=== PATIENT | female | born 1965 | race Caucasian/White ===

== ENCOUNTER 2016-12-08 20:48 | Inpatient (IN) | payer OTHER ==
[~2016-12-08] VITALS: Ht 162.6 cm; Wt 69.4 kg
[2016-12-08 20:45] VITALS: BP 142/100; PULSE 97; RESP 21; TEMP 97; O2SAT 95
[2016-12-08] MEDS ORDERED: SODIUM CHLORIDE 0.9% FLUSH 10 ML FLUSH IV FLUSH PRN (21:15)
[2016-12-08] MEDS ORDERED: GLUCAGON 1 MG/ML VIAL OTHER PRN (21:15)
[2016-12-08] MEDS ORDERED: NALOXONE HCL 0.4 MG/ML AMP IV PUSH PRN (21:15)
[2016-12-08] MEDS ORDERED: ACETAMINOPHEN 325 MG TAB PO PRN (21:15)
[2016-12-08] MEDS ORDERED: DEXTROSE 50% IN WATER 50 ML VIAL(D50) IV PUSH PRN (21:15)
[2016-12-08] MEDS ORDERED: ONDANSETRON HCL 4 MG/2 ML VIAL IVP PRN (21:15)
[2016-12-08] MEDS: ENOXAPARIN SODIUM 40 MG/0.4 ML SYRINGE SQ SCH (22:18)
[2016-12-08] MEDS ORDERED: METF1000 PO (22:21)
[2016-12-09] VITALS (8 sets, daily range): BP systolic 136–157; BP diastolic 82–106; PULSE 75–98; RESP 17–20; TEMP 97.5–98.2; O2SAT 94–98
[2016-12-09 07:05] LABS: AUTOMATED NEUTROPHIL # 4.3 TH/MM3 (1.8-7.7); BASOPHIL # 0.1 TH/MM3 (0-0.2); BASOPHIL % 0.8 % (0.0-2.0); EOSINOPHIL # 0.2 TH/MM3 (0-0.4); EOSINOPHIL % 3.1 % (0.0-4.0); HEMATOCRIT 37.9 % (35.0-46.0); HEMO FLAGS DIFF FINAL; LYMPH % 29.8 % (9.0-44.0); LYMPHOCYTE # 2.2 TH/MM3 (1.0-4.8); MEAN CELL VOLUME 89.8 FL (80.0-100.0); MEAN CORPUSCULAR HEMOGLOBIN 31.3 PG (27.0-34.0); MEAN CORPUSCULAR HGB CONC 34.9 % (32.0-36.0); NEUT % 59.3 % (16.0-70.0); PLATELET COUNT 181 TH/MM3 (150-450); RED BLOOD COUNT 4.22 MIL/MM3 (4.00-5.30); RED CELL DISTRIBUTION WIDTH 12.8 % (11.6-17.2); WHITE BLOOD COUNT 7.3 TH/MM3 (4.0-11.0)
[2016-12-09 07:10] LABS: POTASSIUM 3.4 MEQ/L (3.5-5.1)
[2016-12-09 07:15] LABS: BICARBONATE 30.6 MEQ/L (21.0-32.0)
--- NOTE | 2016-12-09 07:29 | EKG ---
Date Performed: 12/09/2016 Time Performed: 03:05:59 PTAGE: 51 years EKG: Sinus rhythm WITH OCCASIONAL VENTRICULAR PREMATURE COMPLEXES POSSIBLE LEFT ATRIAL ENLARGEMENT LOW QRS VOLTAGE IN PRECORDIAL LEADS MODERATE INTRAVENTRICULAR CONDUCTION DELAY NONSPECIFIC T-WAVE ABNORMALITY BORDERLINE ECG Compared to prior electrocardiogram, Premature ventricular contractions are now present PREVIOUS TRACING : 12/08/2016 21.34 DOCTOR: Tonny Baez Interpretating Date/Time 12/09/2016 07:27:22
--- NOTE | 2016-12-09 07:35 | EKG ---
Date Performed: 12/08/2016 Time Performed: 21:34:48 PTAGE: 51 years EKG: Sinus rhythm NONSPECIFIC T-WAVE ABNORMALITY BORDERLINE ECG No significant change from prior electrocardiogram. NO PREVIOUS TRACING DOCTOR: Tonny Baez Interpretating Date/Time 12/09/2016 07:34:41
[2016-12-09] MEDS: INSULIN ASPART SUPPLEMENTAL SCALE SQ SCH ×4 (08:00→21:00)
[2016-12-09] MEDS: SODIUM CHLORIDE 0.9% FLUSH 10 ML FLUSH IV FLUSH SCH ×2 (08:10→19:49)
[2016-12-09] MEDS ORDERED: MAGNESIUM SULFATE 1 GM PREMIX 100 ML IV ONE (08:30)
--- NOTE | 2016-12-09 09:00 | PD.CONS ---
HPI Consult Requested By Reason for Consult Congestive heart failure Primary Care Physician No Primary Care Physician History of Present Illness Hospital records have been reviewed. The patient is a pleasant 51-year-old woman I am seeing for congestive heart failure. She is homeless but presently living with her daughter. She has 1-2 week history of pedal edema, increased dyspnea on exertion, PND and orthopnea. She notes no chest pain, syncope or palpitations. She may have had a heart murmur in the past. EKG showed sinus rhythm with PVCs, nonspecific T-wave changes and nonspecific intraventricular conduction defect. Review of Systems Consitutional: DENIES: Fatigue Eyes: DENIES: Amaurosis Fugax Respiratory: COMPLAINS OF: Shortness of breath, DENIES: Cough, Snoring Genitourinary: DENIES: Urinary incontinence Neurologic: DENIES: Tingling or numbness Musculoskeletal: COMPLAINS OF: Joint pain Psychiatric: DENIES: Anxiety, Depression Past Family Social History Allergies: Coded Allergies: No Known Allergies (Unverified , 12/08/16) Past Medical History Diabetes Past Surgical History Tubal ligation Reported Medications Reported Meds & Active Scripts Active Reported Metformin (Metformin HCl) 1,000 Mg Tab 1,000 Mg PO BIDPC Active Ordered Medications Current Medications Medications (Trade) Dose Ordered Sig/Dorian Route Start Time Stop Time Status Last Admin (NS Flush) 2 ml UNSCH PRN IV FLUSH 12/08/16 21:15 (NS Flush) 2 ml BID IV FLUSH 12/09/16 09:00 12/09/16 08:10 (Tylenol) 650 mg Q4H PRN PO 12/08/16 21:15 (Zofran Inj) 4 mg Q6H PRN IVP 12/08/16 21:15 (Lovenox Inj) 40 mg Q24H SQ 12/08/16 21:15 12/08/16 22:18 (Narcan Inj) 0.4 mg UNSCH PRN IV PUSH 12/08/16 21:15 (D50w (Vial) Inj) 50 ml UNSCH PRN IV PUSH 12/08/16 21:15 (Glucagon Inj) 1 mg UNSCH PRN OTHER 12/08/16 21:15 (NovoLOG SUPPLEMENTAL SCALE) 1 ACHS SLIDING SCALE SQ 12/09/16 08:00 (Lasix Inj) 20 mg BID@18 IV PUSH 12/09/16 09:00 Magnesium Sulfate/ Dextrose 100 ml @ 100 mls/hr ONCE ONCE IV 12/09/16 08:30 12/09/16 09:29 12/09/16 08:08 Family History Noncontributory Social History The patient is single. She lost her home and is living with her daughter. She smokes 4 cigarettes a day up until yesterday and rarely drinks. There is no other drug usage. Physical Exam Vital Signs Vital Signs Date Time Temp Pulse Resp B/P (MAP) Pulse Ox O2 Delivery O2 Flow Rate FiO2 12/09/16 08:00 97.7 80 18 157/94 (115) 96 12/09/16 04:00 98.1 94 20 150/100 (117) 94 12/09/16 00:00 98.2 98 20 146/98 (114) 98 12/08/16 20:45 97.0 97 21 142/100 (114) 95 Physical Exam CONSTITUTIONAL: A well-developed, well-nourished patient in no apparent distress. EYES: Conjunctiva normal. Sclera nonicteric. Eyelids normal. No xanthelasma. HEENT: Oral mucosa normal without pallor or cyanosis. NECK: JVD less than or equal to 5 cm of water. RESPIRATORY: Breathing is unlabored without accessory muscle use. Normal breath sounds. No wheezes, rales or rubs present. CARDIOVASCULAR: Normal point of maximal impulse. No cardiac thrill present. Regular rate and rhythm. No murmurs, gallops, rubs or clicks present. PULSES: Carotid arteries: Normal pulses bilaterally without bruits. Palmar arteries: Radial pulses 2+ bilaterally Abdominal aorta: Aortic pulses normal without bruits or enlargement. Femoral arteries: 2+ bilaterally. No bruits present. Pedal pulses: 1-2+ bilaterally PERIPHERAL CIRCULATION: No cyanosis, clubbing, edema or varicosities present. GASTROINTESTINAL: Normal bowel sounds. Nontender without rigidity or guarding. No masses present. No hepatomegaly. Liver is nontender to palpation and spleen is nonpalpable. Digital rectal exam-not indicated for cardiovascular exam. MUSCULOSKELETAL: No kyphosis or scoliosis present. The patient is not ambulated. Able to undergo rehabilitation. SKIN: Skin turgor is normal. No rashes. NEUROLOGIC: Grossly oriented to person, place and time. Normal mood and appropriate affect. Laboratory Laboratory Tests Test 12/08/16 21:35 12/09/16 03:05 12/09/16 06:35 Total Creatine Kinase 79 73 Troponin I 0.39 0.35 White Blood Count 7.3 Red Blood Count 4.22 Hemoglobin 13.2 Hematocrit 37.9 Mean Corpuscular Volume 89.8 Mean Corpuscular Hemoglobin 31.3 Mean Corpuscular Hemoglobin Concent 34.9 Red Cell Distribution Width 12.8 Platelet Count 181 Mean Platelet Volume 9.1 Neutrophils (%) (Auto) 59.3 Lymphocytes (%) (Auto) 29.8 Monocytes (%) (Auto) 7.0 Eosinophils (%) (Auto) 3.1 Basophils (%) (Auto) 0.8 Neutrophils # (Auto) 4.3 Lymphocytes # (Auto) 2.2 Monocytes # (Auto) 0.5 Eosinophils # (Auto) 0.2 Basophils # (Auto) 0.1 CBC Comment DIFF FINAL Differential Comment Blood Urea Nitrogen 15 Creatinine 0.88 Random Glucose 297 Calcium Level 8.3 Sodium Level 139 Potassium Level 3.4 Chloride Level 102 Carbon Dioxide Level 30.6 Anion Gap 6 Estimat Glomerular Filtration Rate 67 Magnesium Level 1.6 Result Diagram: 12/09/1635 12/09/16 0635 Imaging Chest x-ray in [place] shows no active disease. PT and PTT were normal. BNP elevated at 709. Telemetry has revealed sinus rhythm with nonsustained ventricular tachycardia. Assessment and Plan Assessment and Plan Problems: Congestive heart failure with probable cardiomyopathy Elevated troponin -these are flat and I suspect related to cardiomyopathy. Hypertension Diabetes Nonsustained ventricular tachycardia Recommendations: I have spoken to the primary service and she will be moved to the main campus. Replete potassium and magnesium. Echocardiogram Start beta blockers and beena inhibitors DVT prophylaxis Statin therapy Continue diuretics with follow-up lab work The patient will need further evaluation probably with nuclear stress testing or catheterization and electrophysiology consultation. Her homeless status makes things more difficult. All questions were answered. Tonny Baez MD Dec 09, 2016 09:00
[2016-12-09] MEDS: FUROSEMIDE 20 MG/2 ML VIAL IV PUSH SCH ×2 (09:25→18:16)
[2016-12-09] MEDS: ATORVASTATIN 20 MG TAB PO SCH (10:48)
[2016-12-09] MEDS: CARVEDILOL 3.125 MG TAB PO SCH ×2 (10:48→19:48)
[2016-12-09] MEDS: ENALAPRIL MALEATE 5 MG TAB PO SCH (10:48)
--- NOTE | 2016-12-09 14:27 | HHI.HP ---
HPI Service [facility] Primary Care Physician No Primary Care Physician Admission Diagnosis Diagnoses: (1) Ventricular tachycardia Diagnosis: Principal (2) New onset of congestive heart failure Diagnosis: Principal (3) Elevated troponin Diagnosis: Principal (4) Shortness of breath Diagnosis: Principal (5) Diabetes Diagnosis: Secondary Chief Complaint: Shortness of breath, lower extremity edema Travel History International Travel<30 Days: No Contact w/Intl Traveler <30 Da: No Traveled to Known Affected Are: No History of Present Illness 51-year-old female with known history of diabetes who presented went to the emergency department in [place] because of shortness of breath, lower extremity edema, feet numbness. Patient states that her symptoms started 2 weeks ago and it progressively gotten worse. She has had increased shortness of breath, dyspnea on exertion, lower extremity edema. Denied any actual chest pain. Denies any fever, chills, nausea, vomiting, lightheadedness, dizziness. Patient had workup done in the [place] emergency department and was found to have significant medical issues with elevated troponin, elevated BNP. New- onset congestive heart failure, non-ST elevated myocardial infarction. Patient was transferred to [place] for continued management. This morning patient has significant episodes of ventricular tachycardia. This was monitored on telemetry. Patient was asleep during the time. Patient still did not experience any chest pain. She does have shortness of breath, she was diaphoretic. Review of Systems Respiratory: COMPLAINS OF: Shortness of breath Cardiovascular: COMPLAINS OF: Dyspnea on Exertion, Lower Extremity Edema Except as stated in HPI: all other systems reviewed are Neg Past Family Social History Past Medical History Diabetes Past Surgical History Tubal ligation Reported Medications Reported Meds & Active Scripts Active Reported Metformin (Metformin HCl) 1,000 Mg Tab 1,000 Mg PO BIDPC Allergies: Coded Allergies: No Known Allergies (Unverified , 12/08/16) Family History Reviewed is significant for mother having a stroke. Grandfather with heart disease Social History Patient smokes a pack cigarettes a day since she was 11 years old. Use alcohol occasionally. Denies any illicit drugs Physical Exam Vital Signs Vital Signs Date Time Temp Pulse Resp B/P (MAP) Pulse Ox O2 Delivery O2 Flow Rate FiO2 12/09/16 12:00 97.5 75 19 143/82 (102) 95 12/09/16 08:00 97.7 80 18 157/94 (115) 96 12/09/16 04:00 98.1 94 20 150/100 (117) 94 12/09/16 00:00 98.2 98 20 146/98 (114) 98 12/08/16 20:45 97.0 97 21 142/100 (114) 95 Physical Exam GENERAL: Well-developed, well-nourished, in no acute distress. alert and orientated HEENT: Head is normocephalic without any lesions or masses noted. Facial features are symmetric. Eyes: Pupils equal round reactive to light. Extraocular muscles are intact. Conjunctivae were clear. Oropharyngeal: Pharynx without any erythema edema. Tongue is midline without deviation. Buccal mucosa is moist without any masses or lesions NECK: Supple without any masses. Trachea midline no deviation. No JVD, no bruits are appreciated CARDIAC: Regular rhythm, regular rate. S1/S2 are heard. No murmurs gallops or rubs. LUNGS: Clear to auscultation bilaterally. No wheeze, rhonchi or rales. No use of accessory muscles on inspiration or expiration. ABDOMEN: Soft, nontender. Nondistended. Bowel sounds heard in all 4 quadrants. No organomegaly or masses. Negative rebound, negative guarding EXTREMITIES: 1+ pitting edema noted bilateral lower extremities, pulses are equal bilaterally. No cyanosis or clubbing NEUROLOGY: Mood and affect appear appropriate. Cranial nerves II through XII grossly intact. Muscle strength 5/5 in upper and lower extremities bilaterally. Deep tendon reflexes are 2+ in upper and lower extremities bilaterally. Laboratory Laboratory Tests Test 12/08/16 21:35 12/09/16 03:05 12/09/16 06:35 Total Creatine Kinase 79 73 Troponin I 0.39 0.35 White Blood Count 7.3 Red Blood Count 4.22 Hemoglobin 13.2 Hematocrit 37.9 Mean Corpuscular Volume 89.8 Mean Corpuscular Hemoglobin 31.3 Mean Corpuscular Hemoglobin Concent 34.9 Red Cell Distribution Width 12.8 Platelet Count 181 Mean Platelet Volume 9.1 Neutrophils (%) (Auto) 59.3 Lymphocytes (%) (Auto) 29.8 Monocytes (%) (Auto) 7.0 Eosinophils (%) (Auto) 3.1 Basophils (%) (Auto) 0.8 Neutrophils # (Auto) 4.3 Lymphocytes # (Auto) 2.2 Monocytes # (Auto) 0.5 Eosinophils # (Auto) 0.2 Basophils # (Auto) 0.1 CBC Comment DIFF FINAL Differential Comment Blood Urea Nitrogen 15 Creatinine 0.88 Random Glucose 297 Calcium Level 8.3 Sodium Level 139 Potassium Level 3.4 Chloride Level 102 Carbon Dioxide Level 30.6 Anion Gap 6 Estimat Glomerular Filtration Rate 67 Magnesium Level 1.6 Result Diagram: 12/09/1663412/09/1635 Caprini VTE Risk Assessment Caprini VTE Risk Assessment: Mod/High Risk (score >= 2) Caprini Risk Assessment Model Point Value = 1 Point Value = 2 Point Value = 3 Point Value = 5 Age 41-60 Minor surgery BMI > 25 kg/m2 Swollen legs Varicose veins or History of unexplained or recurrent spontaneous Oral contraceptives or hormone replacement Sepsis (< 1 month) Serious lung disease, including pneumonia (< 1 month) Abnormal pulmonary function Acute myocardial infarction Congestive heart failure (< 1 month) History of inflammatory bowel disease Medical patient at bed rest Age 61-74 Arthroscopic surgery Major open surgery (> 45 min) Laparoscopic surgery (> 45 min) Malignancy Confined to bed (> 72 hours) Immobilizing plaster cast Central venous access Age >= 75 History of VTE Family history of VTE Factor V Leiden Prothrombin [id number] Lupus anticoagulant Anticardiolipin antibodies Elevated serum homocysteine Heparin-induced thrombocytopenia Other congenital or acquired thrombophilia Stroke (< 1 month) Elective arthroplasty Hip, pelvis, or leg fracture Acute spinal cord injury (< 1 month) Prophylaxis Regimen Total Risk Factor Score Risk Level Prophylaxis Regimen 0-1 Low Early ambulation 2 Moderate Order ONE of the following: *Sequential Compression Device (SCD) *Heparin 5000 units SQ BID 3-4 Higher Order ONE of the following medications: *Heparin 5000 units SQ TID *Enoxaparin/Lovenox 40 mg SQ daily (WT < 150 kg, CrCl > 30 mL/min) *Enoxaparin/Lovenox 30 mg SQ daily (WT < 150 kg, CrCl > 10-29 mL/min) *Enoxaparin/Lovenox 30 mg SQ BID (WT < 150 kg, CrCl > 30 mL/min) AND/OR *Sequential Compression Device (SCD) 5 or more Highest Order ONE of the following medications: *Heparin 5000 units SQ TID (Preferred with Epidurals) *Enoxaparin/Lovenox 40 mg SQ daily (WT < 150 kg, CrCl > 30 mL/min) *Enoxaparin/Lovenox 30 mg SQ daily (WT < 150 kg, CrCl > 10-29 mL/min) *Enoxaparin/Lovenox 30 mg SQ BID (WT < 150 kg, CrCl > 30 mL/min) AND *Sequential Compression Device (SCD) Assessment and Plan Assessment and Plan Non-ST elevated myocardial infarction Patient was evaluated for shortness of breath, lower extremity edema. Found to have elevated troponin, new onset heart failure, significant non-sustained ventricular tachycardia Radio Communications Superintendent consulted for recommendations Patient started on aspirin, Start Coreg 3.125 mg twice daily Start enalapril 5 mg daily Cardiology started statin: Lipitor 20 mg daily Discuss with Radio Communications Superintendent, indicated there is no need for heparin IV at this time Status post magnesium sulfate IV New onset congestive heart failure Lasix 20 mg IV every 12 hours Obtain echocardiogram Patient started on beta vangie, GUILLAUME inhibitor Diabetes Accu-Cheks with sliding scale insulin DVT prevention Subcutaneous Lovenox I, Ciro Blackwood, independently evaluated the patient agree with the above overall assessment and plan. Patient was in no respiratory distress during evaluation. Heart sounds are regular rate and rhythm, no murmurs. No lower extremity edema. No clubbing cyanosis or edema noted of the extremities otherwise. Good color, no pallor. We'll have patient transferred to Main [facility] per cardiology's request. I independently reviewed EKG which shows no acute ST segment elevations Physician Certification 2 Midnight Certification Type: Admission for Inpatient Services Order for Inpatient Services The services are ordered in accordance with Medicare regulations or non- Medicare payer requirements, as applicable. In the case of services not specified as inpatient-only, they are appropriately provided as inpatient services in accordance with the 2-midnight benchmark. Estimated LOS (days): 3 days is the estimated time the patient will need to remain in the hospital, assuming treatment plan goals are met and no additional complications. Post-Hospital Plan: Not yet determined Issac Camacho Dec 09, 2016 14:27 Ciro Blackwood MD Dec 09, 2016 14:46
[2016-12-09 16:05] LABS: HDL CHOLESTEROL 46.9 MG/DL (40.0-60.0)
[2016-12-09] MEDS: ENOXAPARIN SODIUM 40 MG/0.4 ML SYRINGE SQ SCH (19:49)
[2016-12-09] MEDS ORDERED: POTASSIUM CHLORIDE 10 MEQ CONTROLLED RELEASE TAB PO ONE (20:45)
[2016-12-10] VITALS (17 sets, daily range): BP systolic 122–165; BP diastolic 62–106; PULSE 81–102; RESP 16–49; TEMP 98–99.7; O2SAT 93–99
[2016-12-10] MEDS ORDERED: traMADol HCL 50 MG TAB PO ONE (01:45)
[2016-12-10 05:21] LABS: BICARBONATE 31.3 MEQ/L (21.0-32.0); POTASSIUM 3.7 MEQ/L (3.5-5.1)
--- NOTE | 2016-12-10 07:36 | PD.CARD.PN ---
Subjective Subjective Remarks The patient denies chest pain, shortness of breath, palpitations, GI symptoms or bleeding. Echocardiogram is pending. The patient was not transferred until late yesterday. Telemetry reveals sinus rhythm. Objective Medications Current Medications Medications (Trade) Dose Ordered Sig/Dorian Route Start Time Stop Time Status Last Admin (NS Flush) 2 ml UNSCH PRN IV FLUSH 12/08/16 21:15 (NS Flush) 2 ml BID IV FLUSH 12/09/16 09:00 12/09/16 08:10 (Tylenol) 650 mg Q4H PRN PO 12/08/16 21:15 (Zofran Inj) 4 mg Q6H PRN IVP 12/08/16 21:15 (Lovenox Inj) 40 mg Q24H SQ 12/08/16 21:15 12/09/16 19:49 (Narcan Inj) 0.4 mg UNSCH PRN IV PUSH 12/08/16 21:15 (D50w (Vial) Inj) 50 ml UNSCH PRN IV PUSH 12/08/16 21:15 (Glucagon Inj) 1 mg UNSCH PRN OTHER 12/08/16 21:15 (NovoLOG SUPPLEMENTAL SCALE) 1 ACHS SLIDING SCALE SQ 12/09/16 08:00 (Lasix Inj) 20 mg BID@09,18 IV PUSH 12/09/16 09:00 12/09/16 18:16 (Vasotec) 5 mg DAILY PO 12/09/16 10:00 12/09/16 10:48 (Coreg) 3.125 mg Q12HR PO 12/09/16 10:00 12/09/16 19:48 (Aspirin) 325 mg DAILY PO 12/10/16 09:00 (Lipitor) 20 mg DAILY PO 12/09/16 10:00 12/09/16 10:48 Vital Signs / I&O Vital Signs Date Time Temp Pulse Resp B/P (MAP) Pulse Ox O2 Delivery O2 Flow Rate FiO2 12/10/16 04:00 98.0 86 18 136/81 (99) 97 12/10/16 00:00 98.4 81 18 140/87 (104) 96 12/09/16 20:00 98.1 89 17 155/95 (115) 98 12/09/16 18:00 88 12/09/16 16:00 90 12/09/16 15:10 98.0 87 20 136/87 (103) 95 12/09/16 12:00 97.5 75 19 143/82 (102) 95 12/09/16 08:00 97.7 80 18 157/94 (115) 96 I/O 12/09/16 12/09/16 12/09/16 12/10/16 12/10/16 12/10/16 07:00 15:00 23:00 07:00 15:00 23:00 Intake Total 100 ml 25 ml Balance 100 ml 25 ml Intake Oral 25 ml IV Total 100 ml # Voids 2 3 2 # Bowel Movements 0 0 Physical Exam GENERAL: Well-nourished, well-developed patient in no apparent distress. SKIN: Warm and dry. NECK: JVD normal - less than or equal to 5 cm H20. CARDIOVASCULAR: Regular rate and rhythm without murmurs, gallops, or rubs. RESPIRATORY: Normal breath sounds - equal bilaterally. No accessory muscle use. No wheezes, rales or rubs. PERIPHERY: No cyanosis, or edema. Laboratory Laboratory Tests Test 12/09/16 15:15 12/10/16 04:30 Nasal Screen MRSA (PCR) MRSA NOT DETECTED Blood Urea Nitrogen 14 MG/DL Creatinine 0.85 MG/DL Random Glucose 156 MG/DL Calcium Level 8.7 MG/DL Sodium Level 140 MEQ/L Potassium Level 3.7 MEQ/L Chloride Level 102 MEQ/L Carbon Dioxide Level 31.3 MEQ/L Anion Gap 7 MEQ/L Estimat Glomerular Filtration Rate 70 ML/MIN Imaging Reviewed Assessment and Plan Assessment and Plan Problems: Congestive heart failure with probable cardiomyopathy. Left ventricular function unknown at present. Elevated troponin -these are flat and I suspect related to cardiomyopathy. Hypertension Diabetes Nonsustained ventricular tachycardia Tobacco abuse. Recommendations: Switch to oral diuretics. Replete potassium and magnesium PRN. Statins Echocardiogram pending. Beta blockers and beena inhibitors DVT prophylaxis The patient will need further evaluation probably with nuclear stress testing or catheterization and electrophysiology consultation. Her homeless status makes things more difficult. The decision as to further workup will be based on echocardiogram results. I will leave follow-up to one of my partners to see her tomorrow. Tonny Baez MD Dec 10, 2016 07:35
[2016-12-10] MEDS: INSULIN ASPART SUPPLEMENTAL SCALE SQ SCH ×4 (08:00→19:58)
[2016-12-10] MEDS: SODIUM CHLORIDE 0.9% FLUSH 10 ML FLUSH IV FLUSH SCH ×2 (09:00→19:58)
[2016-12-10] MEDS ORDERED: ASPIRIN 325 MG TAB PO SCH (09:00)
[2016-12-10] MEDS: ATORVASTATIN 20 MG TAB PO SCH (09:23)
[2016-12-10] MEDS: ENALAPRIL MALEATE 5 MG TAB PO SCH (09:24)
[2016-12-10] MEDS: CARVEDILOL 3.125 MG TAB PO SCH ×2 (09:24→19:57)
[2016-12-10] MEDS: FUROSEMIDE 20 MG TAB PO SCH (09:24)
--- NOTE | 2016-12-10 12:54 | HHI.PR ---
Subjective Remarks Follow up NSTEMI/CONGESTIVE HEART FAILURE 12/10/16-patient seen and examined; complains of some chest discomfort and shortness of breath Objective Vitals Vital Signs Date Time Temp Pulse Resp B/P (MAP) Pulse Ox O2 Delivery O2 Flow Rate FiO2 12/10/16 12:30 83 18 135/62 (86) 97 12/10/16 12:00 86 16 126/75 (92) 97 12/10/16 12:00 86 12/10/16 12:00 99.7 12/10/16 10:00 96 25 147/101 (116) 95 12/10/16 10:00 96 12/10/16 09:30 102 49 140/98 (112) 96 12/10/16 09:00 83 19 149/97 (114) 93 12/10/16 08:30 88 22 154/90 (111) 94 12/10/16 08:01 91 34 142/97 (112) 94 12/10/16 08:00 87 12/10/16 08:00 91 32 95 12/10/16 08:00 98.9 12/10/16 04:00 98.0 86 18 136/81 (99) 97 12/10/16 00:00 98.4 81 18 140/87 (104) 96 12/09/16 20:00 98.1 89 17 155/95 (115) 98 12/09/16 18:00 88 12/09/16 16:00 90 12/09/16 15:10 98.0 87 20 136/87 (103) 95 I/O 12/09/16 12/09/16 12/09/16 12/10/16 12/10/16 12/10/16 07:00 15:00 23:00 07:00 15:00 23:00 Intake Total 100 ml 25 ml Balance 100 ml 25 ml Intake Oral 25 ml IV Total 100 ml # Voids 2 3 2 # Bowel Movements 0 0 Result Diagram: 12/09/16 0635 12/10/16 0430 Objective Remarks GENERAL: NAD SKIN: Warm and dry. HEAD: Normocephalic. EYES: No scleral icterus. No injection or drainage. NECK: Supple, trachea midline. No JVD or lymphadenopathy. CARDIOVASCULAR: Regular rate and rhythm without murmurs, gallops, or rubs. RESPIRATORY: Breath sounds equal bilaterally. No accessory muscle use. GASTROINTESTINAL: Abdomen soft, non-tender, nondistended. MUSCULOSKELETAL: No cyanosis, or edema. BACK: Nontender without obvious deformity. No CVA tenderness. A/P Problem List: (1) Ventricular tachycardia ICD Code: I47.2 - Ventricular tachycardia (2) New onset of congestive heart failure ICD Code: I50.9 - Heart failure, unspecified (3) Elevated troponin ICD Code: R74.8 - Abnormal levels of other serum enzymes (4) Shortness of breath ICD Code: R06.02 - Shortness of breath (5) Diabetes ICD Code: E11.9 - Type 2 diabetes mellitus without complications Assessment and Plan 51 YRS old female Non-ST elevated myocardial infarction likely will have nuclear stress test vs [facility] pending 2D echo currently on aspirin,Coreg 3.125 mg twice daily, enalapril 5 mg daily, Lipitor 20 mg daily Appreciate input from Hydrogen Operator, indicated there is no need for heparin IV at this time New onset congestive heart failure Lasix 20 mg IV every 12 hours 2-D echocardiogram pending Continue beta vangie, GUILLAUME inhibitor Diabetes Accu-Cheks with sliding scale insulin Hemoglobin A1c pending DVT prevention Subcutaneous Lovenox Magnus Bashir MD Dec 10, 2016 12:54
[2016-12-10 15:49] LABS: HEMOGLOBIN A1a 1.8 %; HEMOGLOBIN Ao 76.9 %; HEMOGLOBIN F 1.9 %; HEMOGLOBIN LA1C 2.4 %; HEMOGLOBIN P3 4.7 %
--- NOTE | 2016-12-10 17:45 | ECHRPT ---
Indication: Shortness of breath CONCLUSIONS The left ventricular systolic function is severely reduced with an estimated ejection fraction less than 20%. Severely dilated left ventricle. Wall thickness is normal. There is global left ventricular dysfunction. Fdzjz-fe-dmik mitral valve regurgitation. Calcification of the non-coronary cusp. Trace aortic valve regurgitation. There is mild tricuspid valve regurgitation. The estimated pulmonary arterial pressure is 31.3 mmHg. BP: / HR: Rhythm: Sinus MEASUREMENTS (Male / Female) Normal Values Technical Quality:good 2D ECHO LV Diastolic Diameter PLAX 6.1 cm 4.2 - 5.9 / 3.9 - 5.3 cm LV Systolic Diameter PLAX 5.8 cm IVS Diastolic Thickness 0.9 cm 0.6 - 1.0 / 0.6 - 0.9 cm LVPW Diastolic Thickness 0.9 cm 0.6 - 1.0 / 0.6 - 0.9 cm LV Relative Wall Thickness 0.3 RV Internal Dim ED PLAX 1.9 cm LVOT Diameter 2.0 cm LA Systolic Diameter LX 3.1 cm 3.0 - 4.0 / 2.7 - 3.8 cm LV Ejection Fraction MOD BP 12.4 % >= 55 % LV Ejection Fraction MOD 4C 10.1 % LV Ejection Fraction 4C AL 12.0 % LV Ejection Fraction MOD 2C 14.9 % LV Ejection Fraction 2C AL 14.6 % M-MODE Aortic Root Diameter MM 3.1 cm AV Cusp Separation MM 1.7 cm DOPPLER AV Peak Velocity 82.5 cm/s AV Peak Gradient 2.7 mmHg LVOT Peak Velocity 69.6 cm/s LVOT Peak Gradient 1.9 mmHg AV Area Cont Eq pk 2.7 cm MV Area PHT 5.6 cm LV E' Septal Velocity 3.2 cm/s TR Peak Velocity 231.0 cm/s TR Peak Gradient 21.3 mmHg Right Atrial Pressure 10.0 mmHg Pulmonary Artery Systolic Pressu 31.3 mmHg Right Ventricular Systolic Press 31.3 mmHg PV Peak Velocity 64.1 cm/s PV Peak Gradient 1.6 mmHg FINDINGS LEFT VENTRICLE The left ventricular systolic function is severely reduced with an estimated ejection fraction less than 20%. Severely dilated left ventricle. Wall thickness is normal. There is global left ventricular dysfunction. RIGHT VENTRICLE Normal right ventricular size and systolic function. LEFT ATRIUM The left atrial size is normal. RIGHT ATRIUM The right atrial size is normal. ATRIAL SEPTUM Normal atrial septal thickness without atrial level shunting by limited color doppler interrogation. AORTA The aortic root and proximal ascending aorta are normal in size on limited imaging. MITRAL VALVE Structurally normal mitral valve. Fsvtm-qy-qyne mitral valve regurgitation. AORTIC VALVE Trileaflet aortic valve. Calcification of the non-coronary cusp. Trace aortic valve regurgitation. TRICUSPID VALVE There is mild tricuspid valve regurgitation. The estimated pulmonary arterial pressure is 31.3 mmHg. PULMONARY VALVE No pulmonary valve regurgitation or stenosis. VESSELS The inferior vena cava (IVC) is normal in size. PERICARDIUM No pericardial effusion. Iftikhar Ramirez MD (Electronically Signed) Final Date:10 December 2016 17:44
[2016-12-10] MEDS ORDERED: ALPRAZolam 0.25 MG TAB PO ONE (19:45)
[2016-12-10] MEDS: ENOXAPARIN SODIUM 40 MG/0.4 ML SYRINGE SQ SCH (19:57)
[2016-12-11] VITALS (25 sets, daily range): BP systolic 108–150; BP diastolic 64–90; PULSE 74–92; RESP 11–31; TEMP 97.7–98.5; O2SAT 95–100
[2016-12-11] MEDS ORDERED: traMADol HCL 50 MG TAB PO ONE (03:15)
--- NOTE | 2016-12-11 07:30 | MB ---
cc: LEONIDES BOYCE DO DATE OF CONSULTATION 12/10/2016 REASON FOR CONSULTATION Congestive heart failure, new onset cardiomyopathy, nonsustained VT, consideration of cardiac catheterization. HISTORY OF PRESENT ILLNESS Monika Snyder is a pleasant 51-year-old female who presented to [place] emergency room due to shortness of breath and lower extremity edema. She was transferred to [facility] and was seen by my partner, Dr. Baez for new onset congestive heart failure. During her workup, she had episodes of nonsustained ventricular tachycardia for which the patient was symptomatic. She also had an echocardiogram which showed an ejection fraction of less than 20%. Because of this, I was asked to see the patient for consideration of cardiac catheterization to rule out ischemic lesions. She states that she has been symptomatic for the past few weeks and it has progressively gotten worse. She has been extremely short of breath and her lower extremity edema has become more extensive. She denies actual chest pain. She has never been worked up for cardiomyopathy in the past. During the workup, she was found to have an elevated troponin which has been relatively flat. PAST MEDICAL HISTORY 1. Diabetes 2. New onset cardiomyopathy with an ejection fraction less than 20%. 3. Nonsustained ventricular tachycardia. PAST SURGICAL HISTORY Tubal ligation ALLERGIES NO KNOWN DRUG ALLERGIES. MEDICATIONS Metformin 1000 mg b.i.d. FAMILY HISTORY Mother had a stroke. Grandfather had heart disease. Denies premature coronary artery disease or sudden cardiac within the family. SOCIAL HISTORY The patient has smoked a pack of cigarettes a day since she was 11 years old. She uses alcohol occasionally. Denies drug abuse. REVIEW OF SYSTEMS 14-systems were reviewed including osteopathic pertinent positives and negatives as above, otherwise negative. PHYSICAL EXAMINATION VITAL SIGNS: Temperature 98.5, heart rate 86, blood pressure 131/79, respirations 22, pulse ox 97%. GENERAL: The patient appears well in no acute distress, alert awake and oriented x3. HEAD, EYES, EARS, NOSE, AND THROAT: Extraocular muscles intact. Mucous membranes moist. NECK: Supple with minimal JVD noted. Carotid upstroke is brisk in nature. HEART: Regular rate and rhythm. Positive first and second heart sounds with a 1/6 holosystolic murmur noted at the apex. LUNGS: Relatively clear to auscultation with no wheezes, rales or rhonchi. ABDOMEN: Soft, nontender, nondistended. No organomegaly noted. EXTREMITIES: Show trace edema bilaterally. Femoral and distal pulses are intact bilaterally. NEUROLOGIC: No focal deficits. SKIN: Warm, dry and intact. OSTEOPATHIC: No kyphoscoliosis, lordosis or paraspinal tender points. LABORATORY FINDINGS Hemoglobin 13.2, hematocrit 37.9, platelets 181. Potassium 3.7, BUN 14, creatinine 0.85, troponin 0.35, total cholesterol 218, LDL 112, HDL 47, triglycerides 294. Hemoglobin A1c 10.6. Electrocardiogram (December 09, 2016 at 03:05 sinus rhythm, rare PVC, possible left atrial enlargement, low QRS voltage in precordial leads, nonspecific interventricular conduction delay, nonspecific ST-T wave changes. IMPRESSION 1. New-onset acute systolic heart failure. 2. New onset cardiomyopathy of unknown cause. 3. Elevated troponin 4. Hypertension 5. Uncontrolled diabetes mellitus 6. Nonsustained ventricular tachycardia 7. Tobacco abuse RECOMMENDATIONS 1. Ms. Snyder appears to have new onset acute systolic heart failure with a new onset cardiomyopathy and because of this, she will be recommended a right and left heart catheterization. 2. The risks, benefits and alternatives were explained to and she consented as such. 3. Recommend repleting her electrolytes as necessary. 4. She will be started on beta vangie and GUILLAUME inhibitor therapy, as well as statin therapy. 5. We need to consider a LifeVest upon discharge depending on the hospital course. 6. I spoke to her for greater than three minutes about tobacco cessation. 7. Further recommendations will be made after coronary visualization. Thank you for allowing me to see Monika Snyder. If there are any questions, please do not hesitate to call. Leonides Boyce DO VGP/DJL /10:47 PM /7:17 AM
[2016-12-11] MEDS: INSULIN ASPART SUPPLEMENTAL SCALE SQ SCH ×4 (08:00→22:35)
[2016-12-11] MEDS ORDERED: MIDAZOLAM HCL 2 MG/2 ML VIAL ONE (08:17)
[2016-12-11] MEDS ORDERED: HEPARIN-NS/PF INJ 1,500 ML ONE (08:17)
[2016-12-11] MEDS ORDERED: VERAPAMIL HCL 5 MG/2 ML VIAL ONE (08:17)
[2016-12-11] MEDS ORDERED: HEPARIN SODIUM - IV 10,000 UNITS/10 ML VIAL ONE (08:18)
[2016-12-11] MEDS ORDERED: NITROGLYCERIN INJ 5 ML ONE (08:18)
--- NOTE | 2016-12-11 09:11 | HHI.PR ---
Subjective Remarks Follow up NSTEMI/CONGESTIVE HEART FAILURE 12/10/16-patient seen and examined; complains of some chest discomfort and shortness of breath 12/11/16-patient seen and examined, currently nothing by mouth and heading for left heart catheterization. Denies any chest pain. EF 20% Objective Vitals Vital Signs Date Time Temp Pulse Resp B/P (MAP) Pulse Ox O2 Delivery O2 Flow Rate FiO2 12/11/16 04:00 98.1 81 20 142/80 (100) 100 12/11/16 00:00 98.0 79 24 137/88 (104) 100 12/10/16 20:00 98.2 87 26 122/74 (90) 99 12/10/16 18:00 89 12/10/16 17:01 90 29 156/90 (112) 98 12/10/16 17:00 92 30 158/106 (123) 99 12/10/16 16:30 97 27 165/102 (123) 98 12/10/16 16:00 98.5 12/10/16 16:00 86 12/10/16 16:00 86 24 131/79 (96) 97 12/10/16 14:00 93 12/10/16 12:30 83 18 135/62 (86) 97 12/10/16 12:00 86 16 126/75 (92) 97 12/10/16 12:00 86 12/10/16 12:00 99.7 12/10/16 10:00 96 25 147/101 (116) 95 12/10/16 10:00 96 12/10/16 09:30 102 49 140/98 (112) 96 I/O 12/10/16 12/10/16 12/10/16 12/11/16 12/11/16 12/11/16 07:00 15:00 23:00 07:00 15:00 23:00 Intake Total 25 ml 1440 ml 240 ml Balance 25 ml 1440 ml 240 ml Intake Oral 25 ml 1440 ml 240 ml # Voids 2 3 2 # Bowel Movements 0 2 2 Result Diagram: 12/09/16 0635 12/10/16 0430 Objective Remarks GENERAL: NAD SKIN: Warm and dry. HEAD: Normocephalic. EYES: No scleral icterus. No injection or drainage. NECK: Supple, trachea midline. No JVD or lymphadenopathy. CARDIOVASCULAR: Regular rate and rhythm without murmurs, gallops, or rubs. RESPIRATORY: Breath sounds equal bilaterally. No accessory muscle use. GASTROINTESTINAL: Abdomen soft, non-tender, nondistended. MUSCULOSKELETAL: No cyanosis, or edema. BACK: Nontender without obvious deformity. No CVA tenderness. A/P Problem List: (1) Acute systolic CHF (congestive heart failure) ICD Code: I50.21 - Acute systolic (congestive) heart failure (2) Ventricular tachycardia ICD Code: I47.2 - Ventricular tachycardia (3) New onset of congestive heart failure ICD Code: I50.9 - Heart failure, unspecified (4) Elevated troponin ICD Code: R74.8 - Abnormal levels of other serum enzymes (5) Shortness of breath ICD Code: R06.02 - Shortness of breath (6) Diabetes ICD Code: E11.9 - Type 2 diabetes mellitus without complications Assessment and Plan 51 YRS old female Non-ST elevated myocardial infarction Plan for left heart catheterization this morning 12/11/16 currently on aspirin,Coreg 3.125 mg twice daily, enalapril 5 mg daily, Lipitor 20 mg daily Appreciate input from Traffic Sign Supervisor, indicated there is no need for heparin IV at this time 2-D with EF of 20%, for which patient may need LifeVest possible New onset systolic congestive heart failure Lasix 20 mg IV every 12 hours 2-D echocardiogram with EF 20% Continue beta vangie, GUILLAUME inhibitor Diabetes II-uncontrolled Accu-Cheks with sliding scale insulin, and will start basal insulin as well as metformin today 12/11/16 Hemoglobin A1c 10.6 Hyperlipidemia Currently on Lipitor 20 mg at bedtime DVT prevention Subcutaneous Lovenox Magnus Bashir MD Dec 11, 2016 09:11
--- NOTE | 2016-12-11 09:44 | CATHPROC ---
[employer] HIS Report Study Information Study Number Admission Scheduled Start Study Start [id number] Dec 08 2016 8:51PM 12/10/2016 Dec 11 2016 8:04AM [place] Service Cardiac Catheterization Admit Source Facility Department Emergency department [facility] - [facility] Referral Physician and Clinical Staff Initial Leonides Delong [employer] Reverser Roddy Concepcion,MT Recorder Gricelda Ly,(R) (BS) Scrub Roberth Lopez RCIS(BS) Procedures Performed Procedure Location (Site) Vessel Name Coronary Angiograms LCA Left Coronary Coronary Angiograms RCA Right Coronary Wire insertion Radial (right) Radial Art. Equipment Time Senior Contracts Manager Description Size Mfg Part Number Used/Scraped CATHETER, FR5 SWAN CAROLINE 08:24 [employer] FR 5 [id number] *[id number] Used MONITOR TRANSDUCER, TRUWAVE [id number] 08:23 MACIAS HAM * Used W/STOCKCOCK *[id number] TRANSDUCER, TRUWAVE [id number] 08:23 [employer] HAM * Used W/STOCKCOCK *[id number] *[id number] *[id number] 08:23 [employer] INDUSTRIES PACK, CCL CUSTOM * Used *[id number] BAND, RADIAL COMPRESSION TR [id number] 09:19 [employer] MEDICAL 24CM Used SHORT 24 *[id number] 08:23 [employer] MEDICAL WIRE, 3MMJ .035 180CM 180CM Used *[id number] 08:23 NAM[employer] MANIFOLD, 2 PORT * Used *[id number] 08:23 NAMIC MANIFOLD, 4 PORT * Used *[id number] 08:23 [employer] OMNIPAQUE, 350 MG, 150ML 150ML [id number] Used [id number] 08:23 [employer] MEDICAL BLANKET,WARM AIR CCL * Used *[id number] 08:25 [employer] SHEATH, FR5 TERUMO (10CM) FR 5 Used *[id number] SHEATH, FR6 TRANSRADIAL RM*[id number] 08:25 [employer] MEDICAL FR 6 Used SLENDER 10CM *[id number] History: Current Medications Medication Dosage/Unit Route Frequency Last Date/Time Taken Beta Terrance LOVENOX ASA History: Allergies Allergy Reaction No Known Allergies History: Risk Factors Family History of Hypertension Dyslipidemia Previous GA Previous Heart Failure Premature CAD Yes Yes No No Yes Prior Valve Prior PCI Prior CABG Surgery No No No Cerebrovascular Peripheral Artery Chronic Lung On Dialysis Diabetes Diabetes Therapy Disease Disease Disease No No No No Yes Oral History: Stress Tests Stress or Imaging Studies Performed No History: Other Current Smoker Method Packs a Day Years Used Pack Years Yes Cigarettes 1 35 35 Labs Hgb (g/dl) Hct (%) WBC (l/cumm) Platelets (thousands) 11.60-17.00 35.00-51.00 4.00-11.00 150.00-450.00 13.2 37.9 7.3 181 Glucose (mg/dl) BUN (mg/dl) Creatinine (mg/dl) BUN:Creatinine (1:x) 74.00-106.00 7.00-18.00 0.50-1.30 10.00-20.00 156 14 0.8 17.5 Na (meq/l) K (meq/l) 136.00-145.00 3.50-5.10 140 3.7 CPK-MB (ng/ML) 0.50-3.60 Not Drawn Medication Medication Total Dose (Bolus/Oral) Medication Total Dosage/Unit 1% XYLOCAINE 6 mL FENTANYL 50 mcg OXYGEN 4 l/min RADIAL COCKTAIL 1 units VERSED 0.5 mg Medications (Bolus/Oral) Medication Time Given Dosage/Unit Administered By Reason OXYGEN 12/11/2016 8:30:07 AM 2 l/min Roddy Concepcion 2 l/min OXYGEN given in lab by Roddy Concepcion RN via Nasal. FENTANYL 12/11/2016 8:47:30 AM 50 mcg Roddy Concepcion 50 mcg FENTANYL given in lab by Roddy Concepcion, MT in Left Antecubital via Peripheral IV. 1% XYLOCAINE 12/11/2016 8:47:51 AM 1 mL Leonides Gusman 1 mL 1% XYLOCAINE given in lab by Leonides Gusman in Right Radial via Subcutaneous. Ntg 200mcg Verapamil 2.5mg Heparin RADIAL COCKTAIL 12/11/2016 8:49:56 AM 1 units Leonides Gusman 2000U 1 units RADIAL COCKTAIL given in lab by Leonides Gusman via Radial. Reason: Ntg 200mcg Verapamil 2.5mg Heparin 2800U. 1% XYLOCAINE 12/11/2016 8:50:51 AM 5 mL Leonides Gusman 5 mL 1% XYLOCAINE given in lab by Leonides Gusman in Right Arm right brachial via Subcutaneous. OXYGEN 12/11/2016 9:04:16 AM 2 l/min Leonides Gusman 2 l/min OXYGEN given in lab by Leonides Gusman via Nasal. VERSED 12/11/2016 9:07:15 AM 0.5 mg Leonides Gusman 0.5 mg VERSED given in lab by Leonides Gusman in Left Antecubital via Peripheral IV. Medication (Drip) Medication Time Given Dosage/Unit Concentration/Unit Diluent (ml) Solution IV Solutions 12/11/2016 8:11:34 AM 0 mL (IV) 500 NaCl .9 IV Solutions given in lab by Roddy Concepcion RN in Left Antecubital via Peripheral IV. Pump/Drip Flow = 20 ml/hr using NaCl .9. Initial Case Assessment Cardiovascular HR Rhythm NIBP Chest Pain 91 reg 157/105 0 Edema Present Skin color Skin None Normal Warm Dry Circulatory - Right Pulses Dorsalis Pedis Femoral Brachial Radial 1 1 1 1 Scale (0,1,2,3,4,d) Scale (0,1,2,3,4,d) Neurological State Oriented to time-place- Alert Moves all extremities person Respiration - General Respiration Rate SpO2 (%) (B/min) 8 93 Chronological Log Time Study Chronological Log 8:10:26 Patient arrived via Bed. 8:10:28 Patient Name, D.O.B, / Armband Verified By R.N. 8:10:29 Consent signed by the physician and the patient and verified by the Rn Referral staff. 8:10:30 Pre-op and post- op instructions given; patient acknowledges understanding of instructions. 8:10:32 Verbal Stimulation=2 Physical Stimulation=2 Airway=2 Respiration=2 TOTAL=8. (0=absent, 1=calloway ited, 2=present) 8:10:35 Presedation assessment performed by Rn Referral RN. 8:10:44 Patient has been NPO for More than 6Hrs. 8:11:17 Skin Breakdown none per pt 8:11:19 Patient Warmer Placed on the Table. 8:11:20 Babar Prominences Protected 8:11:21 A # 20 IV was noted in the Antecubital (left). Grade = 0 IV Solutions given in lab by Roddy Concepcion, RN in Left Antecubital via Peripheral IV. Pump/Drip Flow = 20 ml/hr using 8:11:34 NaCl .9. 8:11:35 History and physical on the chart or being dictated. Assessment: Initial Case, HR=91 BPM, Rhythm=reg, PMVX=563/105 mmhg, Chest Pain=0, Edema=None, Color=Normal, Skin = Warm, Dry 8:11:36 Right Pulses: Man Ped=1, Femoral=1, Brachial=1, Radial=1 Neurological: State=Alert, Ox3, DEAN Respiration: Resp=8 B/min, SpO2=93 % Vitals capture started with the following parameters, Patient=Adult, Interval=5 min, Initial Pre zjgfd=718 mmHg, 8:15:53 Deflation Rate=5 mmHg, Cuff placed on Left Arm 8:16:31 IOHV=285/105 mmhg, SpO2=91.0 %, Pain=0, Manav=10, Turk=2 8:17:10 Reference ECG taken 8:21:32 HR=91 bpm, SPEZ=952/93 mmhg, SpO2=94.0 %, Resp=16 B/min, Pain=0, Manav=10, Turk=2 8:26:31 HR=87 bpm, UOUS=555/89 mmhg, SpO2=91.0 %, Resp=13 B/min, Pain=0, Manav=10, Turk=2 8:30:07 2 l/min OXYGEN given in lab by Roddy Concepcion, RN via Nasal. 8:31:30 HR=78 bpm, ANZS=799/95 mmhg, SpO2=94.0 %, Resp=9 B/min, Pain=0, Manav=10, Turk=2 8:36:29 HR=86 bpm, SJYL=131/93 mmhg, SpO2=94.0 %, Resp=61 B/min, Pain=0, Manav=10, Turk=2 8:37:28 Right Radial, brachial and groin prepped with 2% chlorhexidine, and draped after a 3 min. wa iting time. 8:41:28 HR=90 bpm, CVEL=518/100 mmhg, SpO2=96.0 %, Resp=18 B/min, Pain=0, Manav=10, Turk=2 8:46:31 HR=91 bpm, FSTD=102/97 mmhg, SpO2=95.0 %, Resp=22 B/min, Pain=0, Manav=10, Turk=2 8:46:44 Pressure channel 1 zeroed. 8:47:09 Oxygen off Time Out. Correct patient, correct procedure, correct physician, power injector not loaded with contrast with surgical 8:47:17 team present. Time Out Concurred by MD and individual staff in procedure. 8:47:28 Case Start 8:47:30 50 mcg FENTANYL given in lab by Roddy Concepcion RN in Left Antecubital via Peripheral IV. 8:47:51 1 mL 1% XYLOCAINE given in lab by Leonides Gusman in Right Radial via Subcutaneous. 8:49:17 Access site was right Radial Artery. A SHEATH, FR6 TRANSRADIAL SLENDER 10CM FR 6 was advanced into the Radial (right) using the Percu tanglenna 8:49:30 technique. 1 units RADIAL COCKTAIL given in lab by Leonides Gusman via Radial. Reason: Ntg 200mcg Verap marci 2.5mg 8:49:56 Heparin 2800U. 8:50:51 5 mL 1% XYLOCAINE given in lab by Leonides Gusman in Right Arm right brachial via Subcut aneous. 8:51:32 HR=92 bpm, WBQJ=911/89 mmhg, SpO2=87.0 %, Resp=25 B/min, Pain=0, Manav=10, Turk=2 8:56:29 HR=92 bpm, DAVH=321/87 mmhg, SpO2=87.0 %, Resp=0 B/min, Pain=0, Manav=10, Turk=2 8:56:42 Access site was right Brachial Artery. 8:57:00 A SHEATH, FR5 TERUMO (10CM) FR 5 was advanced into the Brach. Vein (right) using the Percuta neous technique. 8:58:32 A CATHETER, FR5 SWAN CAROLINE MONITOR FR 5 was inserted via Brach. Vein (right) Recorded Pressure: PCW, HR=70, Condition=Condition 1 9:01:27 (Pulmonary Capillary Wedge) PCW 15/15/13 9:01:32 HR=71 bpm, AYSA=248/77 mmhg, SpO2=87.0 %, Resp=18 B/min, Pain=0, Manav=10, Turk=2 9:02:56 Saturation: Site=PA (Pulmonary Artery) , O2=69.8 %, Hgb=13.2 gm/dl, Condition=Condition 1. U sed in calculation. 9:03:25 Saturation: Site=Ao (Aorta) , O2=89.1 %, Hgb=13.2 gm/dl, Condition=Condition 1. Used in calc ulation. Recorded Pressure: MPA, HR=82, Condition=Condition 1 9:03:54 (Main Pulmonary Artery) MPA 9:04:16 2 l/min OXYGEN given in lab by Leonides Gusman via Nasal. Recorded Pressure: RV, HR=84, Condition=Condition 1 9:04:47 (Right Ventricle) RV 23/12/11 Recorded Pressure: RA, HR=76, Condition=Condition 1 9:05:28 (Right Atrium) RA 02/04/11 9:05:59 [place] Catheter Removed 9:06:27 HR=84 bpm, JCVK=504/90 mmhg, SpO2=91.0 %, Resp=17 B/min, Pain=0, Manav=10, Turk=2 A JR 4.0 INFINITI CATHETER FR 5 was advanced over a wire. OMNIPAQUE, 350 MG, 150ML 150ML was use d for 9:06:54 injections. 9:07:15 0.5 mg VERSED given in lab by Leonides Gusman in Left Antecubital via Peripheral IV. Recorded Pressure: LV, HR=87, Condition=Condition 1 9:08:43 (Left Ventricle) LV 136/15/17 Recorded Pressure: LV, Ao, HR=84, Condition=Condition 1 9:09:03 (Left Ventricle) LV 138/14/18, (Aorta) Ao 139/91/111 9:09:32 The RCA was injected and visualized at various angles. OMNIPAQUE, 350 MG, 150ML 150ML used. Recorded Pressure: Ao, HR=83, Condition=Condition 1 9:09:40 (Aorta) Ao 134/92/111 9:11:30 HR=85 bpm, MIZP=017/88 mmhg, SpO2=93.0 %, Resp=17 B/min, Pain=0, Manav=10, Turk=2 After removing the current catheter a JL 3.5 INFINITI CATHETER FR 5 was advanced over a WIRE, 3M MJ .035 180CM 9:11:35 180CM. 9:12:04 The LCA was injected and visualized at various angles. OMNIPAQUE, 350 MG, 150ML 150ML used. 9:16:31 HR=86 bpm, DFGZ=119/95 mmhg, SpO2=94.0 %, Resp=15 B/min, Pain=0, Manav=10, Turk=2 9:17:21 A WIRE, 3MMJ .035 180CM 180CM was inserted via Radial (right). 9:17:30 Catheter was removed 9:17:33 Wire removed Radial Compression Device Used. 11 mLs of air placed in BAND, RADIAL COMPRESSION TR SHORT 24 24C M. Affected 9:18:44 hand ~O2 SATURATION~ % O2 saturation. 9:20:04 Case End 9:20:52 Catheter(s) removed without difficulty 9:21:10 No case complications noted. 9:21:11 Cine recording checked. 9:21:15 Bedside Report will be given. 9:21:18 Contrast Scanned 9:21:23 A Left and Right Heart Cath was performed. 9:21:32 HR=83 bpm, HGMH=797/96 mmhg, SpO2=95.0 %, Resp=23 B/min, Pain=0, Manav=10, Turk=2 9:24:47 Sheath removed; pressure applied to access site. 9:26:33 HR=81 bpm, RSXJ=847/91 mmhg, SpO2=96.0 %, Resp=21 B/min, Pain=0, Manav=10, Turk=2 9:30:57 [facility] called. Spoke to Lucia. 9:31:32 HR=82 bpm, TLHW=291/97 mmhg, SpO2=96.0 %, Resp=17 B/min, Pain=0, Manav=10, Turk=2 9:35:50 Sterile dressing applied to site 9:36:33 HR=81 bpm, IUZZ=623/91 mmhg, SpO2=96.0 %, Resp=24 B/min, Pain=0, Manav=10, Turk=2 9:37:42 Vitals capture stopped. 9:40:22 Patient moved to stretcher End Study - Contrast Media Used In Study Contrast Total Opened (mL) Total Used (mL) Total Wasted (mL) Omnipaque 50 50 0 End Study - Maximum Contrast Load Max Contrast Load (mL) 452.0 End Study - Radiation Exposure Fluoro Time (minutes) 2.7 End Study - Patient Disposition Complications Transferred To Interventional Outcome No Critical Care Bed No attempt made
[2016-12-11] MEDS ORDERED: MISC INFORMATION XX ONE (10:00)
[2016-12-11] MEDS: SODIUM CHLORIDE 0.9% FLUSH 10 ML FLUSH IV FLUSH SCH ×2 (10:06→22:35)
[2016-12-11] MEDS: CARVEDILOL 3.125 MG TAB PO SCH ×2 (10:07→22:35)
[2016-12-11] MEDS: ATORVASTATIN 20 MG TAB PO SCH (10:07)
[2016-12-11] MEDS: FUROSEMIDE 20 MG TAB PO SCH (10:07)
[2016-12-11] MEDS: ENALAPRIL MALEATE 5 MG TAB PO SCH (10:07)
[2016-12-11] MEDS ORDERED: IOHEXOL 350 MG/ML 50 ML BTL (for Cath Lab) OTHER ONE (10:09)
--- NOTE | 2016-12-11 16:01 | PD.CAR.PN ---
CVT Progress Note Subjective/Hospital Course: sts data discussed with pt RISK SCORES About the STS Risk Calculator Procedure: CAB Only Risk of Mortality: 1.369% Morbidity or Mortality: 17.247% Long Length of Stay: 6.029% Short Length of Stay: 36.041% Permanent Stroke: 0.661% Prolonged Ventilation: 14.69% DSW Infection: 0.577% Renal Failure: 1.529% Reoperation: 5.276% Objective: Vital Signs Date Time Temp Pulse Resp B/P (MAP) Pulse Ox O2 Delivery O2 Flow Rate FiO2 12/11/16 15:30 82 21 110/66 (81) 98 12/11/16 15:30 82 21 110/66 (81) 98 12/11/16 15:00 85 13 113/75 (88) 98 12/11/16 15:00 85 13 113/75 (88) 98 12/11/16 14:30 91 31 118/85 (96) 99 12/11/16 14:30 91 21 118/85 (96) 99 12/11/16 14:00 87 17 116/76 (89) 100 12/11/16 14:00 87 17 116/76 (89) 100 12/11/16 13:30 90 22 126/76 (93) 100 12/11/16 13:30 90 22 126/76 (93) 100 12/11/16 13:01 91 20 129/86 (100) 100 12/11/16 13:01 91 20 129/86 (100) 100 12/11/16 13:00 91 14 100 12/11/16 13:00 91 14 100 12/11/16 12:30 84 16 108/73 (85) 100 12/11/16 12:30 84 16 108/73 (85) 100 12/11/16 12:00 98.5 86 12 119/78 (92) 100 12/11/16 12:00 86 12/11/16 12:00 98.5 86 21 119/78 (92) 100 12/11/16 11:30 90 13 114/71 (85) 99 12/11/16 11:30 90 13 114/71 (85) 99 12/11/16 11:00 92 18 122/75 (91) 99 12/11/16 11:00 92 18 122/75 (91) 99 12/11/16 10:45 90 25 97 12/11/16 10:30 87 30 142/90 (107) 96 12/11/16 10:30 87 30 142/90 (107) 96 12/11/16 10:00 82 20 143/89 (107) 96 12/11/16 10:00 82 20 143/89 (107) 96 12/11/16 09:55 83 22 133/84 (100) 98 12/11/16 09:55 83 22 133/84 (100) 98 12/11/16 08:00 98.3 79 15 150/83 (105) 100 12/11/16 08:00 79 12/11/16 07:30 74 11 145/74 (97) 100 12/11/16 07:00 83 16 132/82 (99) 98 12/11/16 04:00 98.1 81 20 142/80 (100) 100 12/11/16 00:00 98.0 79 24 137/88 (104) 100 12/10/16 20:00 98.2 87 26 122/74 (90) 99 12/10/16 18:00 89 12/10/16 17:01 90 29 156/90 (112) 98 12/10/16 17:00 92 30 158/106 (123) 99 12/10/16 16:30 97 27 165/102 (123) 98 Result Diagram: 12/09/16 0635 12/10/16 0430 Clara Schaefer Dec 11, 2016 16:01
--- NOTE | 2016-12-11 16:44 | PD.CARD.PN ---
Subjective Subjective Remarks Patient was seen earlier post-catheterization No complaints Objective Medications Current Medications Medications (Trade) Dose Ordered Sig/Dorian Route Start Time Stop Time Status Last Admin (NS Flush) 2 ml UNSCH PRN IV FLUSH 12/08/16 21:15 (NS Flush) 2 ml BID IV FLUSH 12/09/16 09:00 12/11/16 10:06 (Tylenol) 650 mg Q4H PRN PO 12/08/16 21:15 (Zofran Inj) 4 mg Q6H PRN IVP 12/08/16 21:15 (Narcan Inj) 0.4 mg UNSCH PRN IV PUSH 12/08/16 21:15 (D50w (Vial) Inj) 50 ml UNSCH PRN IV PUSH 12/08/16 21:15 (Glucagon Inj) 1 mg UNSCH PRN OTHER 12/08/16 21:15 (NovoLOG SUPPLEMENTAL SCALE) 1 ACHS SLIDING SCALE SQ 12/09/16 08:00 12/11/16 16:15 (Vasotec) 5 mg DAILY PO 12/09/16 10:00 12/11/16 10:07 (Coreg) 3.125 mg Q12HR PO 12/09/16 10:00 12/11/16 10:07 (Lipitor) 20 mg DAILY PO 12/09/16 10:00 12/11/16 10:07 (Lasix) 20 mg DAILY PO 12/10/16 09:00 12/11/16 10:07 (Levemir Inj) 10 units HS SQ 12/11/16 21:00 (Aspirin Chew) 81 mg DAILY CHEW 12/12/16 09:00 Vital Signs / I&O Vital Signs Date Time Temp Pulse Resp B/P (MAP) Pulse Ox O2 Delivery O2 Flow Rate FiO2 12/11/16 15:30 82 21 110/66 (81) 98 12/11/16 15:30 82 21 110/66 (81) 98 12/11/16 15:00 85 13 113/75 (88) 98 12/11/16 15:00 85 13 113/75 (88) 98 12/11/16 14:30 91 31 118/85 (96) 99 12/11/16 14:30 91 21 118/85 (96) 99 12/11/16 14:00 87 17 116/76 (89) 100 12/11/16 14:00 87 17 116/76 (89) 100 12/11/16 13:30 90 22 126/76 (93) 100 12/11/16 13:30 90 22 126/76 (93) 100 12/11/16 13:01 91 20 129/86 (100) 100 12/11/16 13:01 91 20 129/86 (100) 100 12/11/16 13:00 91 14 100 12/11/16 13:00 91 14 100 12/11/16 12:30 84 16 108/73 (85) 100 12/11/16 12:30 84 16 108/73 (85) 100 12/11/16 12:00 98.5 86 12 119/78 (92) 100 12/11/16 12:00 86 12/11/16 12:00 98.5 86 21 119/78 (92) 100 12/11/16 11:30 90 13 114/71 (85) 99 12/11/16 11:30 90 13 114/71 (85) 99 12/11/16 11:00 92 18 122/75 (91) 99 12/11/16 11:00 92 18 122/75 (91) 99 12/11/16 10:45 90 25 97 12/11/16 10:30 87 30 142/90 (107) 96 12/11/16 10:30 87 30 142/90 (107) 96 12/11/16 10:00 82 20 143/89 (107) 96 12/11/16 10:00 82 20 143/89 (107) 96 12/11/16 09:55 83 22 133/84 (100) 98 12/11/16 09:55 83 22 133/84 (100) 98 12/11/16 08:00 98.3 79 15 150/83 (105) 100 12/11/16 08:00 79 12/11/16 07:30 74 11 145/74 (97) 100 12/11/16 07:00 83 16 132/82 (99) 98 12/11/16 04:00 98.1 81 20 142/80 (100) 100 12/11/16 00:00 98.0 79 24 137/88 (104) 100 12/10/16 20:00 98.2 87 26 122/74 (90) 99 10/16/17 18:00 89 12/10/16 17:01 90 29 156/90 (112) 98 12/10/16 17:00 92 30 158/106 (123) 99 I/O 12/10/16 12/10/16 12/10/16 12/11/16 12/11/16 12/11/16 06:59 14:59 22:59 06:59 14:59 22:59 Intake Total 25 ml 1440 ml 240 ml Balance 25 ml 1440 ml 240 ml Intake Oral 25 ml 1440 ml 240 ml # Voids 2 3 2 # Bowel Movements 0 2 2 Physical Exam GENERAL: NAD, AAOx3 SKIN: Warm and dry. HEAD: Atraumatic. Normocephalic. EYES: Pupils equal and round. No scleral icterus. No injection or drainage. ENT: No nasal bleeding or discharge. Mucous membranes pink and moist. NECK: Trachea midline. No JVD. CARDIOVASCULAR: Regular rate and rhythm. RESPIRATORY: No accessory muscle use. Decreased breath sounds bilaterally GASTROINTESTINAL: Abdomen soft, non-tender, nondistended. Hepatic and splenic margins not palpable. MUSCULOSKELETAL: Extremities without clubbing, cyanosis, or edema. No obvious deformities. NEUROLOGICAL: Awake and alert. No obvious cranial nerve deficits. Motor grossly within normal limits. Five out of 5 muscle strength in the arms and legs. Normal speech. PSYCHIATRIC: Appropriate mood and affect; insight and judgment normal. Assessment and Plan Problem List: (1) Multi-vessel coronary artery stenosis ICD Codes: I25.10 - Atherosclerotic heart disease of [place] coronary artery without angina pectoris (2) Acute systolic CHF (congestive heart failure) ICD Codes: I50.21 - Acute systolic (congestive) heart failure (3) New onset of congestive heart failure ICD Codes: I50.9 - Heart failure, unspecified (4) Elevated troponin ICD Codes: R74.8 - Abnormal levels of other serum enzymes (5) Ventricular tachycardia ICD Codes: I47.2 - Ventricular tachycardia (6) Diabetes ICD Codes: E11.9 - Type 2 diabetes mellitus without complications (7) Shortness of breath ICD Codes: R06.02 - Shortness of breath Assessment and Plan 1) Multivessel CAD Plan for possible CABG Con't ASA/Lipitor 2) Acute systolic heart failure/new ischemic cardiomyopathy Diuresed well Appears mostly compensated with a wedge of 13 on RHC Con't Coreg GUILLAUME-I held for possible CABG 3) Replete electrolytes 4) Plan repeat echo in the am to reevaluate LV function Leonides Gusman DO Dec 11, 2016 16:44
[2016-12-11 18:43] LABS: FREE T3 1.75 PG/ML (2.18-3.98); FREE T4 1.05 NG/DL (0.76-1.46); INDIRECT BILIRUBIN 0.3 MG/DL (0.0-0.8); TOTAL BILIRUBIN ADULT 0.4 MG/DL (0.2-1.0)
--- NOTE | 2016-12-11 20:29 | RADRPT ---
EXAM DATE/TIME: 12/11/2016 18:43 [facility] COMPARISON: No previous studies available for comparison. INDICATIONS : Pre-op cardiac surgery. MEDICAL HISTORY : Congestive heart failure. Diabetes. Joint pain. SURGICAL HISTORY : Tubal ligation. ENCOUNTER: Initial ACUITY: 1 day PAIN SCORE: 2/10 LOCATION: Bilateral neck PEAK SYSTOLIC VELOCITIES (cm/sec): ICA/CCA RATIO: Right: 1.1 Left: 0.8 ICA: Right: 45.2 Left: 48.3 CCA: Right: 42.7 Left: 62.8 ECA: Right: 40.5 Left: 43.8 VERTEBRAL: Right: 36.6 antegrade Left: 28.7 antegrade Elevated flow velocities and ICA/CCA ratios have been found to correlate with increased degrees of vessel stenosis, calculated as percentage of diameter relative to a normal segment of distal ICA/CCA FINDINGS: Antegrade flow is seen in both vertebral arteries. There is mild atherosclerotic plaquing at the orig in of both ICAs without any significant stenosis. CONCLUSION: No evidence for hemodynamically significant stenosis. Doc Hugo MD on December 11, 2016 at 20:27 Board Certified Radiologist. This report was verified electronically.
--- NOTE | 2016-12-11 20:31 | RADRPT ---
EXAM DATE/TIME: 12/11/2016 19:03 [facility] COMPARISON: No previous studies available for comparison. INDICATIONS : Pre-op cardiac surgery. MEDICAL HISTORY : Congestive heart failure. Diabetes. Joint pain. SURGICAL HISTORY : Tubal ligation. ENCOUNTER: Initial ACUITY: 1 day PAIN SCORE: 2/10 LOCATION: Bilateral legs. TECHNIQUE: Venous ultrasound of the left and right leg was performed from the inguinal ligament to the proximal calf. Real-time, color Doppler and spectral tracing, compression and augmentation techniques were us ed. FINDINGS: RIGHT LEG: There is slight nonocclusive thrombus in the right common femoral vein and the superficial femoral ve in, popliteal vein and below the knee vessels are patent. LEFT LEG: There is normal compressibility of the deep venous system from the inguinal region to the proximal ca lf. No echogenic clot is seen in the lumen of the common femoral, femoral, popliteal, and posterior tibial veins. There is a normal response of the venous system to proximal and distal augmentation an d respiration. CONCLUSION: Slight nonocclusive thrombus right common femoral vein. Doc Hugo MD on December 11, 2016 at 20:28 Board Certified Radiologist. This report was verified electronically.
--- NOTE | 2016-12-11 20:31 | RADRPT ---
EXAM DATE/TIME: 12/11/2016 19:15 [facility] COMPARISON: No previous studies available for comparison. INDICATIONS : Pre-op cardiac surgery. MEDICAL HISTORY : Congestive heart failure. Diabetes. Joint pain. SURGICAL HISTORY : Tubal ligation. ENCOUNTER: Initial ACUITY: 1 day PAIN SCORE: 2/10 LOCATION: Bilateral legs. GREATER SAPHENOUS VEIN THIGH: PROXIMAL: Right 4 mm Left 4 mm MID: Right 3 mm Left 3 mm DISTAL: Right 3 mm Left 2 mm CALF: PROXIMAL: Right 2 mm Left Non-visualized MID: Right 2 mm Left Non-visualized DISTAL: Right 2 mm Left Non-visualized FINDINGS: The venous system of the lower extremities are patent by color Doppler imaging. Measurements of the leg veins (in mm) are listed above. CONCLUSION: Measurement as above. Doc Hugo MD on December 11, 2016 at 20:29 Board Certified Radiologist. This report was verified electronically.
[2016-12-11] MEDS: INSULIN DETEMIR 100 UNITS/ML VIAL SQ SCH (22:36)
[2016-12-12] VITALS (8 sets, daily range): BP systolic 106–147; BP diastolic 58–86; PULSE 80–96; RESP 16–18; TEMP 97.8–98.4; O2SAT 94–95
[2016-12-12 06:06] LABS: BASOPHIL # 0.1 TH/MM3 (0-0.2); BASOPHIL % 0.7 % (0.0-2.0); EOSINOPHIL # 0.2 TH/MM3 (0-0.4); EOSINOPHIL % 2.8 % (0.0-4.0); HEMATOCRIT 38.7 % (35.0-46.0); HEMO FLAGS DIFF FINAL; LYMPH % 30.8 % (9.0-44.0); LYMPHOCYTE # 2.6 TH/MM3 (1.0-4.8); MEAN CELL VOLUME 90.5 FL (80.0-100.0); MEAN CORPUSCULAR HEMOGLOBIN 31.4 PG (27.0-34.0); MEAN CORPUSCULAR HGB CONC 34.7 % (32.0-36.0); MONO % 6.8 % (0.0-8.0); NEUT % 58.9 % (16.0-70.0); PLATELET COUNT 210 TH/MM3 (150-450); RED BLOOD COUNT 4.28 MIL/MM3 (4.00-5.30); RED CELL DISTRIBUTION WIDTH 13.3 % (11.6-17.2); WHITE BLOOD COUNT 8.5 TH/MM3 (4.0-11.0)
[2016-12-12 06:34] LABS: BICARBONATE 30.4 MEQ/L (21.0-32.0); POTASSIUM 3.6 MEQ/L (3.5-5.1)
[2016-12-12] MEDS: INSULIN ASPART SUPPLEMENTAL SCALE SQ SCH ×4 (08:00→21:00)
--- NOTE | 2016-12-12 08:41 | MB ---
cc: MAYRA SEN DATE OF CONSULTATION: 12/11/2016 DATE OF : 1965 REASON FOR CONSULTATION: 51-year-old female, with no primary care physician presented to the [place] emergency room at [place], lives in the [facility], due to shortness of breath and lower extremity edema. She was transferred to our facility with new-onset of congestive heart failure. Apparently during her workup she had an episode of nonsustained V-tach which the patient was symptomatic. She underwent echocardiogram which showed an ejection fraction of less than 20%, severely dilated left ventricle, global left ventricular dysfunction and trace to mild mitral valve regurgitation, trace aortic valve regurgitation, mild tricuspid valve regurgitation. Pulmonary artery pressures of 31. Her troponin weak at 0.35. She underwent cardiac cath by Dr. Gusman was found to have 20% left main, 100% mid distal left anterior descending. The diagonal was 90%. The circ was 90%. The OM 90%. The RCA 40%. The posterior lateral branch of 99% right-sided heart pressures include a RA pressures of 11. PA 28/18 with a wedge pressure of 13. Cardiac output of 6.4 with an index of 3.6. The patient denies any recent ill contacts. No recent fevers or chills. Just started having shortness of breath with exertion and without exertion three weeks ago. PAST MEDICAL HISTORY: She has past medical history of diabetes. She was last seen in the [facility] money year ago with a [facility] prescription for metformin which she ran out 3 weeks ago. PAST SURGICAL HISTORY: No past surgical history. ALLERGIES NO KNOWN DRUG ALLERGIES MEDICATIONS Home meds include Metformin 1000 b.i.d. but she has been out for three weeks. FAMILY HISTORY Mother has had history of stroke, she is still alive. Denies any premature coronary disease. SOCIAL HISTORY The patient single, four children. Has smoked one-pack since the age of 14. Social alcohol. No illicit drugs. REVIEW OF SYSTEMS IN GENERAL: No night sweats, fever, heat and cold intolerance. SKIN: No psoriasis, itching or hives. HEAD, EYES, EARS, NOSE, AND THROAT: No blurred vision, hearing loss. RESPIRATORY: Positive for shortness of breath. CARDIOVASCULAR SYSTEM: No chest pain. No chest pressure positive for lower extremity edema which is improved. GASTROINTESTINAL: No diarrhea, vomiting. GENITOURINARY: No burning frequency, urgency. CENTRAL NERVOUS SYSTEM: No history of TIA, CVA, seizure disorder. PHYSICAL EXAMINATION: VITAL SIGNS: On exam blood pressure 140/90, heart rate of 90, respiratory rate of 20, O2 sat 97 on room air. IN GENERAL: Patient is awake, alert in no acute distress. HEAD, EYES, EARS, NOSE, AND THROAT: Head is normocephalic, atraumatic. Pupils equal and reactive. Oral mucosa pink, moist. NECK: Supple. Minimal JVD. No bruits. CARDIOVASCULAR SYSTEM: Heart sounds S1-S2 regular rate and rhythm with a grade 1 to 02/00 holosystolic murmur best on at the apex. LUNGS: Relatively clear. No reasons rub wheezes, rales or rhonchi. ABDOMEN: Abdomen is nontender. No masses or organomegaly. EXTREMITIES: No cyanosis, clubbing or edema. LABORATORY FINDINGS Shows hemoglobin of 13, hematocrit of 37, white cell count 7.3, platelet count 181, sodium 140, potassium 3.7, BUN 14, creatinine 0.85, glucose 156, mag level 1.6, triglycerides 294, cholesterol 218, LDL 112. MRSA screen not detected. RADIOLOGIC: Chest x-ray; No acute disease. EKG shows normal sinus rhythm, nonspecific T-wave changes. IMPRESSION This is a unfortunate 51-year-old female with acute probable ischemic cardiomyopathy with elevated troponins positive heart cath showing multivessel disease. Ejection fraction is 20%. PLAN: The cardiac films will need about be evaluated by Dr. Francy Wills standing his there is going to be a repeat echocardiogram for a limited view to reevaluate her EF she has had significant improvement. Her symptoms with the addition of the Lasix. She is currently on aspirin, Lasix, GUILLAUME inhibitor, beta-vangie lipids for evaluation for cardia cardiovascular surgical candidate as per Dr. Mayra Sen. YARI Hilton dictating. MD DANK Evans/shoaib /3:41 PM /8:29 AM
[2016-12-12] MEDS: CARVEDILOL 3.125 MG TAB PO SCH ×2 (08:50→21:53)
[2016-12-12] MEDS: FUROSEMIDE 20 MG TAB PO SCH (08:50)
[2016-12-12] MEDS: ASPIRIN 81 MG CHEW TAB CHEW SCH (08:50)
[2016-12-12] MEDS: ATORVASTATIN 20 MG TAB PO SCH (08:50)
[2016-12-12] MEDS: ENALAPRIL MALEATE 5 MG TAB PO SCH (08:52)
[2016-12-12] MEDS: SODIUM CHLORIDE 0.9% FLUSH 10 ML FLUSH IV FLUSH SCH ×2 (08:52→21:53)
--- NOTE | 2016-12-12 10:21 | HHI.PR ---
Subjective Remarks Follow up NSTEMI/CONGESTIVE HEART FAILURE 12/10/16-patient seen and examined; complains of some chest discomfort and shortness of breath 12/11/16-patient seen and examined, currently nothing by mouth and heading for left heart catheterization. Denies any chest pain. EF 20% 12/12/16-patient seen and examined, she had heart catheterization yesterday with finding of CAD with multivessel disease. Denies currently any chest pain however complains of shortness of breath. Objective Vitals Vital Signs Date Time Temp Pulse Resp B/P (MAP) Pulse Ox O2 Delivery O2 Flow Rate FiO2 12/12/16 08:03 97.8 88 16 112/72 (85) 95 12/12/16 06:33 98.0 86 17 106/58 (74) 95 12/12/16 00:18 98.1 91 18 117/78 (91) 94 12/12/16 00:18 Room Air 12/11/16 23:55 92 12/11/16 20:21 Room Air 12/11/16 20:21 97.8 89 19 133/86 (102) 95 12/11/16 17:46 97.7 87 18 108/64 (79) 99 12/11/16 16:30 85 13 113/73 (86) 100 12/11/16 16:30 85 13 113/73 (86) 100 12/11/16 16:00 98.3 79 14 120/75 (90) 99 12/11/16 16:00 98.3 79 14 120/75 (90) 99 12/11/16 16:00 79 12/11/16 15:30 82 21 110/66 (81) 98 12/11/16 15:30 82 21 110/66 (81) 98 12/11/16 15:00 85 13 113/75 (88) 98 12/11/16 15:00 85 13 113/75 (88) 98 12/11/16 14:30 91 31 118/85 (96) 99 12/11/16 14:30 91 21 118/85 (96) 99 12/11/16 14:00 87 17 116/76 (89) 100 12/11/16 14:00 87 17 116/76 (89) 100 12/11/16 13:30 90 22 126/76 (93) 100 12/11/16 13:30 90 22 126/76 (93) 100 12/11/16 13:01 91 20 129/86 (100) 100 12/11/16 13:01 91 20 129/86 (100) 100 12/11/16 13:00 91 14 100 12/11/16 13:00 91 14 100 12/11/16 12:30 84 16 108/73 (85) 100 12/11/16 12:30 84 16 108/73 (85) 100 12/11/16 12:00 98.5 86 12 119/78 (92) 100 12/11/16 12:00 86 12/11/16 12:00 98.5 86 21 119/78 (92) 100 12/11/16 11:30 90 13 114/71 (85) 99 12/11/16 11:30 90 13 114/71 (85) 99 12/11/16 11:00 92 18 122/75 (91) 99 12/11/16 11:00 92 18 122/75 (91) 99 12/11/16 10:45 90 25 97 12/11/16 10:30 87 30 142/90 (107) 96 12/11/16 10:30 87 30 142/90 (107) 96 I/O 12/11/16 12/11/16 12/11/16 12/12/16 12/12/16 12/12/16 07:00 15:00 23:00 07:00 15:00 23:00 Intake Total 240 ml 570 ml Balance 240 ml 570 ml Intake Oral 240 ml 570 ml # Voids 2 5 # Bowel Movements 2 1 Result Diagram: 12/12/16 0532 12/12/16 0532 Imaging Last Impressions Lower Extremity Ultrasound 12/11/16 0000 Signed Impressions: Service Date/Time: Sunday, December 11, 2016 19:15 - CONCLUSION: Measurement as above. Doc Hugo MD Carotid Artery Ultrasound 12/11/16 0000 Signed Impressions: Service Date/Time: Sunday, December 11, 2016 18:43 - CONCLUSION: No evidence for hemodynamically significant stenosis. Doc Hugo MD Objective Remarks GENERAL: NAD SKIN: Warm and dry. HEAD: Normocephalic. EYES: No scleral icterus. No injection or drainage. NECK: Supple, trachea midline. No JVD or lymphadenopathy. CARDIOVASCULAR: Regular rate and rhythm without murmurs, gallops, or rubs. RESPIRATORY: Breath sounds equal bilaterally. No accessory muscle use. GASTROINTESTINAL: Abdomen soft, non-tender, nondistended. MUSCULOSKELETAL: No cyanosis, or edema. BACK: Nontender without obvious deformity. No CVA tenderness. A/P Problem List: (1) Acute systolic CHF (congestive heart failure) ICD Code: I50.21 - Acute systolic (congestive) heart failure (2) Ventricular tachycardia ICD Code: I47.2 - Ventricular tachycardia (3) New onset of congestive heart failure ICD Code: I50.9 - Heart failure, unspecified (4) Elevated troponin ICD Code: R74.8 - Abnormal levels of other serum enzymes (5) Shortness of breath ICD Code: R06.02 - Shortness of breath (6) Diabetes ICD Code: E11.9 - Type 2 diabetes mellitus without complications Assessment and Plan 51 YRS old female CAD with Multivessel disease Awaiting evaluation from cardiothoracic surgery for possible CABG Continue with Lipitor, aspirin. Hold GUILLAUME inhibitor in anticipation of CABG Carotid ultrasound and Doppler lower extremities noted and review by me Non-ST elevated myocardial infarction s/p left heart catheterization 12/11/16 with finding of CAD with multivessel disease currently on aspirin,Coreg 3.125 mg twice daily, Lipitor 20 mg daily Appreciate input from Practical Nursing Faculty, indicated there is no need for heparin IV at this time 2-D with EF of 20%, Repeat 2-D echo New onset systolic congestive heart failure Lasix 20 mg daily 2-D echocardiogram with EF 20% Continue beta vangie, and hold GUILLAUME inhibitor in anticipation of CABG Diabetes II-uncontrolled Accu-Cheks with sliding scale insulin, and Levemir 10 units at bedtime Hemoglobin A1c 10.6 Hyperlipidemia Currently on Lipitor 20 mg at bedtime DVT prevention Subcutaneous Lovenox Magnus Bashir MD Dec 12, 2016 10:21
--- NOTE | 2016-12-12 14:38 | PD.CARD.PN ---
Subjective Subjective Remarks Doing well Off oxygen Still SOB with walking No chest pain Objective Medications Current Medications Medications (Trade) Dose Ordered Sig/Dorian Route Start Time Stop Time Status Last Admin (NS Flush) 2 ml UNSCH PRN IV FLUSH 12/08/16 21:15 (NS Flush) 2 ml BID IV FLUSH 12/09/16 09:00 12/12/16 08:52 (Tylenol) 650 mg Q4H PRN PO 12/08/16 21:15 (Zofran Inj) 4 mg Q6H PRN IVP 12/08/16 21:15 (Narcan Inj) 0.4 mg UNSCH PRN IV PUSH 12/08/16 21:15 (D50w (Vial) Inj) 50 ml UNSCH PRN IV PUSH 12/08/16 21:15 (Glucagon Inj) 1 mg UNSCH PRN OTHER 12/08/16 21:15 (NovoLOG SUPPLEMENTAL SCALE) 1 ACHS SLIDING SCALE SQ 12/09/16 08:00 12/11/16 22:35 (Vasotec) 5 mg DAILY PO 12/09/16 10:00 12/12/16 08:52 (Coreg) 3.125 mg Q12HR PO 12/09/16 10:00 12/12/16 08:50 (Lipitor) 20 mg DAILY PO 12/09/16 10:00 12/12/16 08:50 (Lasix) 20 mg DAILY PO 12/10/16 09:00 12/12/16 08:50 (Levemir Inj) 10 units HS SQ 12/11/16 21:00 12/11/16 22:36 (Aspirin Chew) 81 mg DAILY CHEW 12/12/16 09:00 12/12/16 08:50 (KCl) 20 meq DAILY PO 12/13/16 09:00 Vital Signs / I&O Vital Signs Date Time Temp Pulse Resp B/P (MAP) Pulse Ox O2 Delivery O2 Flow Rate FiO2 12/12/16 10:00 96 12/12/16 09:00 95 Room Air 12/12/16 08:03 97.8 88 16 112/72 (85) 95 12/12/16 06:33 98.0 86 17 106/58 (74) 95 12/12/16 00:18 98.1 91 18 117/78 (91) 94 12/12/16 00:18 Room Air 12/11/16 23:55 92 12/11/16 20:21 Room Air 12/11/16 20:21 97.8 89 19 133/86 (102) 95 12/11/16 17:46 97.7 87 18 108/64 (79) 99 12/11/16 16:30 85 13 113/73 (86) 100 12/11/16 16:30 85 13 113/73 (86) 100 12/11/16 16:00 98.3 79 14 120/75 (90) 99 12/11/16 16:00 98.3 79 14 120/75 (90) 99 12/11/16 16:00 79 12/11/16 15:30 82 21 110/66 (81) 98 12/11/16 15:30 82 21 110/66 (81) 98 12/11/16 15:00 85 13 113/75 (88) 98 12/11/16 15:00 85 13 113/75 (88) 98 I/O 12/11/16 12/11/16 12/11/16 12/12/16 12/12/16 12/12/16 07:00 15:00 23:00 07:00 15:00 23:00 Intake Total 240 ml 570 ml Balance 240 ml 570 ml Intake Oral 240 ml 570 ml # Voids 2 5 # Bowel Movements 2 1 Physical Exam GENERAL: NAD, AAOx3 SKIN: Warm and dry. HEAD: Atraumatic. Normocephalic. EYES: Pupils equal and round. No scleral icterus. No injection or drainage. ENT: No nasal bleeding or discharge. Mucous membranes pink and moist. NECK: Trachea midline. No JVD. CARDIOVASCULAR: Regular rate and rhythm. RESPIRATORY: No accessory muscle use. Decreased breath sounds bilaterally GASTROINTESTINAL: Abdomen soft, non-tender, nondistended. Hepatic and splenic margins not palpable. MUSCULOSKELETAL: Extremities without clubbing, cyanosis, or edema. No obvious deformities. NEUROLOGICAL: Awake and alert. No obvious cranial nerve deficits. Motor grossly within normal limits. Five out of 5 muscle strength in the arms and legs. Normal speech. PSYCHIATRIC: Appropriate mood and affect; insight and judgment normal. Laboratory Laboratory Tests Test 12/12/16 05:32 White Blood Count 8.5 TH/MM3 Red Blood Count 4.28 MIL/MM3 Hemoglobin 13.4 GM/DL Hematocrit 38.7 % Mean Corpuscular Volume 90.5 FL Mean Corpuscular Hemoglobin 31.4 PG Mean Corpuscular Hemoglobin Concent 34.7 % Red Cell Distribution Width 13.3 % Platelet Count 210 TH/MM3 Mean Platelet Volume 9.4 FL Neutrophils (%) (Auto) 58.9 % Lymphocytes (%) (Auto) 30.8 % Monocytes (%) (Auto) 6.8 % Eosinophils (%) (Auto) 2.8 % Basophils (%) (Auto) 0.7 % Neutrophils # (Auto) 5.0 TH/MM3 Lymphocytes # (Auto) 2.6 TH/MM3 Monocytes # (Auto) 0.6 TH/MM3 Eosinophils # (Auto) 0.2 TH/MM3 Basophils # (Auto) 0.1 TH/MM3 CBC Comment DIFF FINAL Differential Comment Blood Urea Nitrogen 23 MG/DL Creatinine 0.94 MG/DL Random Glucose 98 MG/DL Calcium Level 8.7 MG/DL Sodium Level 141 MEQ/L Potassium Level 3.6 MEQ/L Chloride Level 103 MEQ/L Carbon Dioxide Level 30.4 MEQ/L Anion Gap 8 MEQ/L Estimat Glomerular Filtration Rate 63 ML/MIN Assessment and Plan Problem List: (1) Multi-vessel coronary artery stenosis ICD Codes: I25.10 - Atherosclerotic heart disease of [place] coronary artery without angina pectoris (2) Acute systolic CHF (congestive heart failure) ICD Codes: I50.21 - Acute systolic (congestive) heart failure (3) New onset of congestive heart failure ICD Codes: I50.9 - Heart failure, unspecified (4) Elevated troponin ICD Codes: R74.8 - Abnormal levels of other serum enzymes (5) Ventricular tachycardia ICD Codes: I47.2 - Ventricular tachycardia (6) Diabetes ICD Codes: E11.9 - Type 2 diabetes mellitus without complications (7) Shortness of breath ICD Codes: R06.02 - Shortness of breath Assessment and Plan 1) Multivessel CAD Plan for possible CABG Con't ASA/Lipitor/Coreg 2) Acute systolic heart failure/new ischemic cardiomyopathy Diuresed well Appears mostly compensated with a wedge of 13 on RHC Con't Coreg GUILLAUME-I held for possible CABG 3) Replete electrolytes 4) Plan repeat echo today to reevaluate LV function Leonides Gusman DO Dec 12, 2016 14:38
--- NOTE | 2016-12-12 16:17 | MA ---
cc: LEONIDES BOYCE DO DATE: December 11, 2016 PROCEDURE Left heart catheterization, right heart catheterization, coronary angiogram, moderate sedation 13 minutes, ultrasound guided access. PREPROCEDURE DIAGNOSIS N-STEMI, new cardiomyopathy, acute systolic heart failure, nonsustained ventricular tachycardia. POSTPROCEDURE DIAGNOSIS Multivessel coronary artery disease. MEDICATIONS Fentanyl 50 micrograms, Versed 0.5 milligrams, verapamil 2.5 milligrams, nitro 200 micrograms, heparin 2800 units. CONTRAST USED 50 cc MODERATE SEDATION: 13 minutes FLUOROSCOPY 2.7 minutes ESTIMATED BLOOD LOSS 10 cc PROCEDURAL SUMMARY Monika Snyder is a pleasant 51-year-old female who presented to [place] emergency room due to shortness of breath. She was found to have elevated troponins and new cardiomyopathy with acute systolic heart failure. She had episodes of nonsustained ventricular tachycardia while in the hospital. Because of this she was recommended cardiac catheterization to rule out ischemic lesions as a possible cause for her new cardiomyopathy and systolic heart failure. The risks, benefits and alternatives were explained to her and she consented as such. She was brought to lab and prepped in the usual sterile fashion. Right radial artery was accessed using a modified Seldinger technique and placement of a 5/6 Danish sheath. Right brachial artery was accessed using a modified Seldinger technique and ultrasound guidance, replacement of a 5/6 Danish sheath. Both of these were easily aspirated and flushed. A [place]-Nikki catheter was advanced into a wedge position and pressures and oxygenations were done in a standard fashion on the way back through the heart. [place]-Nikki catheter was removed. A JR-4 was advanced over a J-wire to the ascending aorta and across the aortic valve for measurement of left ventricular pressure. This was pulled back across the aortic valve showing no significant gradient of aortic stenosis. JR-4 was used for selective angiography of the right coronary artery. This was exchanged out for a JL-3.5 which was used for selective angiography of the left coronary artery. JL-3.5 was removed over a J-wire. Radial band was placed over the arteriotomy site for hemostasis. Venous sheath was removed with pressure held for hemostasis. The patient left the biological lab technician cardiovascularly stable. FINDINGS Left main: Normal size vessel with adequate reflux and tapering distally of 20%. It bifurcates into LAD and circumflex. LAD: Normal size vessel with 100% occlusion in the mid portion after the takeoff of two diagonals. The distal portion appears to fill via collaterals from the distal diagonals. The first diagonal is a normal-size vessel with 90% ostial stenosis. The second diagonal does not appear to have significant disease throughout. CIRCUMFLEX: Normal-size vessel with diffuse 80% disease throughout the proximal to midportion and into the first obtuse marginal. RCA: Normal-size vessel with moderate diffuse disease of 40-50% throughout the mid to distal portion. The RCA has no significant disease and provides collaterals through the septal perforators to the LAD. There is one small posterior lateral branch which is subtotally occluded in the mid portion but is overall a small vessel. HEMODYNAMICS RA 11. RV 28 / 10, RVEDP 12. PA 28 / 18, mean PA 22. Wedge 13. LVEDP: 18. Cardiac output 6.4. Cardiac index 3.6. IMPRESSION 1. Multivessel coronary artery disease as above. 1. N-STEMI 2. New ischemic cardiomyopathy. 3. Acute systolic heart failure. 4. Nonsustained ventricular tachycardia. RECOMMENDATIONS 1. Ms. Snyder presented with a new acute systolic heart failure and was found to have multivessel disease. 2. Because of her multivessel disease she will be recommended consideration of coronary artery bypass grafting. 3. This was discussed with Dr. Sen who will review the case. 4. She appears to be diuresed well and compensated relatively quickly. I feel that we should recheck an echo for evaluation of her overall left ventricular function preoperatively, if she is to have bypass grafting. 5. She will be continued on medications for her heart failure but GUILLAUME inhibitor therapy will be held in anticipation if she does have coronary artery bypass grafting. 6. We may need to discuss with her possible LifeVest therapy upon discharge. Thank you for allowing me to see Monika Snyder. If there are any questions please do not hesitate to call. Leonides Boyce DO SHEBAP/STIVEN /3:09 PM /3:24 PM
--- NOTE | 2016-12-12 17:24 | ECHRPT ---
Indication: EF assessment of CHF CONCLUSIONS Severely dilated left ventricle. Wall thickness is normal. The left ventricular systolic function is severely reduced with an estimated ejection fraction in th e range of 15-20%. There is global hypokinesis. Mild mitral valve regurgitation. BP: 106 / 58 HR: Rhythm: Sinus MEASUREMENTS (Male / Female) Normal Values Technical Quality:Fair 2D ECHO LV Diastolic Diameter PLAX 7.3 cm 4.2 - 5.9 / 3.9 - 5.3 cm LV Systolic Diameter PLAX 6.7 cm IVS Diastolic Thickness 0.8 cm 0.6 - 1.0 / 0.6 - 0.9 cm LVPW Diastolic Thickness 0.8 cm 0.6 - 1.0 / 0.6 - 0.9 cm LV Relative Wall Thickness 0.2 LVOT Diameter 2.1 cm Aortic Root Diameter 2.7 cm LA Systolic Diameter LX 2.9 cm 3.0 - 4.0 / 2.7 - 3.8 cm M-MODE AV Cusp Separation MM 1.9 cm DOPPLER Mitral E Point Velocity 34.6 cm/s Mitral A Point Velocity 73.1 cm/s Mitral E to A Ratio 0.5 LV E' Lateral Velocity 3.6 cm/s Mitral E to LV E' Lateral Ratio 9.6 LV E' Septal Velocity 4.6 cm/s Mitral E to LV E' Septal Ratio 7.6 FINDINGS LEFT VENTRICLE Severely dilated left ventricle. Wall thickness is normal. The left ventricular systolic function is severely reduced with an estimated ejection fraction in th e range of 15-20%. There is global hypokinesis. RIGHT VENTRICLE Normal right ventricular size and systolic function. LEFT ATRIUM The left atrial size is normal. RIGHT ATRIUM The right atrial size is normal. ATRIAL SEPTUM Normal atrial septal thickness without atrial level shunting by limited color doppler interrogation. AORTA The aortic root and proximal ascending aorta are normal in size on limited imaging. MITRAL VALVE Mild mitral valve regurgitation. AORTIC VALVE Trileaflet aortic valve. No aortic valve stenosis or regurgitation. TRICUSPID VALVE Structurally normal tricuspid valve. No tricuspid valve stenosis or regurgitation. PULMONARY VALVE The pulmonary valve is not well visualized. VESSELS The inferior vena cava is normal in size. PERICARDIUM No pericardial effusion. Sorin Alexandre MD (Electronically Signed) Final Date:12 December 2016 17:22
--- NOTE | 2016-12-12 18:09 | PD.CAR.PN ---
CVT Progress Note Subjective/Hospital Course: 51-year-old female, with no primary care physician presented to the [place] emergency room at [place], lives in the [place] area, due to shortness of breath and lower extremity edema. She was transferred to our facility with new-onset of congestive heart failure. Apparently during her workup she had an episode of nonsustained V-tach which the patient was symptomatic. She underwent echocardiogram which showed an ejection fraction of less than 20%, severely dilated left ventricle, global left ventricular dysfunction and trace to mild mitral valve regurgitation,trace aortic valve regurgitation, mild tricuspid valve regurgitation. Pulmonary artery pressures of 31. Her troponin weak at 0.35. She underwent cardiac cath by Dr. Gusman was found to have 20% left main, 100% mid distal left anterior descending. The diagonal was 90%. The circ was 90%. The OM 90%. The RCA 40% . The posterior lateral branch of 99% right-sided heart pressures include a RA pressures of 11. PA 28/18 with a wedge pressure of 13. Cardiac output of 6.4 with an index of 3.6. repeat limited echo : EF 15-20% 12/12 pt on room air feels fair, no chest pain Objective: GENERAL: SKIN: Warm and dry. HEAD: Normocephalic. EYES: No scleral icterus. No injection or drainage. NECK: Supple, trachea midline. mild JVD or lymphadenopathy. CARDIOVASCULAR: Regular rate and rhythm without murmurs, gallops, or rubs. RESPIRATORY: Breath sounds equal bilaterally. No accessory muscle use. GASTROINTESTINAL: Abdomen soft, non-tender, nondistended. MUSCULOSKELETAL: No cyanosis, or edema. BACK: Nontender without obvious deformity. No CVA tenderness. Vital Signs Date Time Temp Pulse Resp B/P (MAP) Pulse Ox O2 Delivery O2 Flow Rate FiO2 12/12/16 10:00 96 12/12/16 09:00 95 Room Air 12/12/16 08:03 97.8 88 16 112/72 (85) 95 12/12/16 06:33 98.0 86 17 106/58 (74) 95 12/12/16 00:18 98.1 91 18 117/78 (91) 94 12/12/16 00:18 Room Air 12/11/16 23:55 92 12/11/16 20:21 Room Air 10/17/17 20:21 97.8 89 19 133/86 (661) 95 Result Diagram: 12/12/16 0532 12/12/16 0532 (1) Multi-vessel coronary artery stenosis Plan: re-eval candidate for surgery by Dr Sen (2) Acute systolic CHF (congestive heart failure) Plan: EF 20% ASA, BB GUILLAUME (3) New onset of congestive heart failure (4) Elevated troponin (5) Ventricular tachycardia (6) Diabetes (7) Shortness of breath Clara Schaefer Dec 12, 2016 18:09
[2016-12-12] MEDS: INSULIN DETEMIR 100 UNITS/ML VIAL SQ SCH (21:53)
[2016-12-13] VITALS (7 sets, daily range): BP systolic 118–130; BP diastolic 67–85; PULSE 80–91; RESP 16–20; TEMP 97.6–98.7; O2SAT 92–96
[2016-12-13 01:04] LABS: BLOOD, URINE SMALL (NEG); COMMENT (UR) CULT NOT INDICATED; CULTURE IF INDICATED CULT NOT INDICATED; GLUCOSE,URINE 150 mg/dL (NEG); KETONE, URINE NEG (NEG); NITRITE,URINE NEG (NEG); SQUAMOUS EPITHELIAL CELL URINE 1 /hpf (0-5); URINE COLOR YELLOW (YELLW/STRAW)
[2016-12-13] MEDS: INSULIN ASPART SUPPLEMENTAL SCALE SQ SCH ×4 (08:00→21:00)
[2016-12-13] MEDS: ASPIRIN 81 MG CHEW TAB CHEW SCH (09:06)
[2016-12-13] MEDS: ENALAPRIL MALEATE 5 MG TAB PO SCH (09:07)
[2016-12-13] MEDS: CARVEDILOL 3.125 MG TAB PO SCH ×2 (09:07→21:42)
[2016-12-13] MEDS: FUROSEMIDE 20 MG TAB PO SCH (09:07)
[2016-12-13] MEDS: ATORVASTATIN 20 MG TAB PO SCH (09:07)
[2016-12-13] MEDS: POTASSIUM CHLORIDE 20 MEQ CONTROLLED RELEASE TAB PO SCH (09:07)
[2016-12-13] MEDS: SODIUM CHLORIDE 0.9% FLUSH 10 ML FLUSH IV FLUSH SCH ×2 (09:08→21:43)
--- NOTE | 2016-12-13 10:09 | HHI.PR ---
Subjective Remarks Follow up NSTEMI/CONGESTIVE HEART FAILURE 12/10/16-patient seen and examined; complains of some chest discomfort and shortness of breath 12/11/16-patient seen and examined, currently nothing by mouth and heading for left heart catheterization. Denies any chest pain. EF 20% 12/12/16-patient seen and examined, she had heart catheterization yesterday with finding of CAD with multivessel disease. Denies currently any chest pain however complains of shortness of breath. 12/13/16-patient seen and examined, denies any chest pain or shortness of breath. Patient was all in tears this morning as she is being transferred to [facility] Objective Vitals Vital Signs Date Time Temp Pulse Resp B/P (MAP) Pulse Ox O2 Delivery O2 Flow Rate FiO2 12/13/16 08:00 97.7 90 16 130/83 (99) 93 12/13/16 04:00 98.3 85 16 129/84 (99) 93 12/13/16 00:00 98.7 80 16 121/72 (88) 94 12/12/16 20:04 98.4 95 17 147/85 (105) 95 12/12/16 19:15 91 12/12/16 19:15 97 Room Air 12/12/16 16:03 98.0 80 17 129/86 (100) 95 12/12/16 12:03 97.8 88 16 112/72 (85) 95 I/O 12/12/16 12/12/16 12/12/16 12/13/16 12/13/16 12/13/16 06:59 14:59 22:59 06:59 14:59 22:59 Intake Total 570 ml 380 ml 720 ml Balance 570 ml 380 ml 720 ml Intake Oral 570 ml 380 ml 720 ml # Voids 5 6 3 # Bowel Movements 1 2 Result Diagram: 12/12/16 0532 12/12/16 0532 Imaging Last Impressions Lower Extremity Ultrasound 12/11/16 0000 Signed Impressions: Service Date/Time: Sunday, December 11, 2016 19:15 - CONCLUSION: Measurement as above. Doc Hugo MD Carotid Artery Ultrasound 12/11/16 0000 Signed Impressions: Service Date/Time: Sunday, December 11, 2016 18:43 - CONCLUSION: No evidence for hemodynamically significant stenosis. Doc Hugo MD Objective Remarks GENERAL: NAD SKIN: Warm and dry. HEAD: Normocephalic. EYES: No scleral icterus. No injection or drainage. NECK: Supple, trachea midline. No JVD or lymphadenopathy. CARDIOVASCULAR: Regular rate and rhythm without murmurs, gallops, or rubs. RESPIRATORY: Breath sounds equal bilaterally. No accessory muscle use. GASTROINTESTINAL: Abdomen soft, non-tender, nondistended. MUSCULOSKELETAL: No cyanosis, or edema. BACK: Nontender without obvious deformity. No CVA tenderness. A/P Problem List: (1) Acute systolic CHF (congestive heart failure) ICD Code: I50.21 - Acute systolic (congestive) heart failure (2) Ventricular tachycardia ICD Code: I47.2 - Ventricular tachycardia (3) New onset of congestive heart failure ICD Code: I50.9 - Heart failure, unspecified (4) Elevated troponin ICD Code: R74.8 - Abnormal levels of other serum enzymes (5) Shortness of breath ICD Code: R06.02 - Shortness of breath (6) Diabetes ICD Code: E11.9 - Type 2 diabetes mellitus without complications Assessment and Plan 51 YRS old female CAD with Multivessel disease Awaiting evaluation from cardiothoracic surgery for possible CABG Continue with Lipitor, aspirin. Hold GUILLAUME inhibitor in anticipation of CABG Carotid ultrasound and Doppler lower extremities noted and review by me Plan for transfer to [facility] Non-ST elevated myocardial infarction s/p left heart catheterization 12/11/16 with finding of CAD with multivessel disease currently on aspirin,Coreg 3.125 mg twice daily, Lipitor 20 mg daily Appreciate input from Director Microbiology, indicated there is no need for heparin IV at this time 2-D with EF of 20%, Repeat 2-D echo with EF 15-20% New onset systolic congestive heart failure Lasix 20 mg daily 2-D echocardiogram with EF 20%, however repeat 2-D echo with EF 15-20% Continue beta vangie, and hold GUILLAUME inhibitor in anticipation of CABG Diabetes II-uncontrolled Accu-Cheks with sliding scale insulin, and Levemir 10 units at bedtime Hemoglobin A1c 10.6 Hyperlipidemia Currently on Lipitor 20 mg at bedtime DVT prevention Subcutaneous Lovenox Magnus Bashir MD Dec 13, 2016 10:09
[2016-12-13] MEDS ORDERED: RESP: ALBUTEROL 2.5 MG/IPRATROPIUM 0.5 MG NEB (PRN) NEB (10:15)
--- NOTE | 2016-12-13 11:23 | PD.CAR.PN ---
CVT Progress Note Subjective/Hospital Course: 51-year-old female, with no primary care physician presented to the [place] emergency room at [facility], lives in the [place] area, due to shortness of breath and lower extremity edema. She was transferred to our facility with new-onset of congestive heart failure. Apparently during her workup she had an episode of nonsustained V-tach which the patient was symptomatic. She underwent echocardiogram which showed an ejection fraction of less than 20%, severely dilated left ventricle, global left ventricular dysfunction and trace to mild mitral valve regurgitation,trace aortic valve regurgitation, mild tricuspid valve regurgitation. Pulmonary artery pressures of 31. Her troponin weak at 0.35. She underwent cardiac cath by Dr. Gusman was found to have 20% left main, 100% mid distal left anterior descending. The diagonal was 90%. The circ was 90%. The OM 90%. The RCA 40% . The posterior lateral branch of 99% right-sided heart pressures include a RA pressures of 11. PA 28/18 with a wedge pressure of 13. Cardiac output of 6.4 with an index of 3.6. repeat limited echo : EF 15-20% 12/12 pt on room air feels fair, no chest pain 12/13/16 I reviewed the ECHo from yesterday and her EF remains very low at 15-20%. Her distal coronary artery targets in the LAD and LCx are not good. The resources to support her at [facility] are somewhat limited, so I consulted with Dr. Hoang at [facility]. He recommends transfer to the Heart Failure service at [facility] for further evaluation and management. Objective: Vital Signs Date Time Temp Pulse Resp B/P (MAP) Pulse Ox O2 Delivery O2 Flow Rate FiO2 12/13/16 08:00 97.7 90 16 130/83 (99) 93 12/13/16 04:00 98.3 85 16 129/84 (99) 93 12/13/16 00:00 98.7 80 16 121/72 (88) 94 12/12/16 20:04 98.4 95 17 147/85 (105) 95 12/12/16 19:15 91 12/12/16 19:15 97 Room Air 12/12/16 16:03 98.0 80 17 129/86 (100) 95 12/12/16 12:03 97.8 88 16 112/72 (85) 95 Labs: Laboratory Tests Test 12/13/16 00:45 Urine Color YELLOW (YELLW/STRAW) Urine Turbidity CLEAR (CLEAR) Urine pH 7.0 (5.0-8.5) Urine Specific [place] 1.019 (1.002-1.035) Urine Protein 300 mg/dL (NEG-TRACE) Urine Glucose (UA) 150 mg/dL (NEG) Urine Ketones NEG mg/dL (NEG) Urine Occult Blood SMALL (NEG) Urine Nitrite NEG (NEG) Urine Bilirubin NEG (NEG) Urine Urobilinogen LESS THAN 2.0 MG/DL (LESS Urine Leukocyte Esterase NEG (NEG) Urine RBC 4 /hpf (0-3) Urine WBC 2 /hpf (0-5) Urine Squamous Epithelial Cells 1 /hpf (0-5) Microscopic Urinalysis Comment CULT NOT INDICATED Result Diagram: 12/12/1653112/12/16531 Plan: Transfer to [facility] Heart Failure Service if they are agreeable to accept her. Based on her LV function and relatively poor distal targets, I will not consider CABG here at [facility]. I have discussed this with the patient and she agrees with moving forward with transfer. (1) Multi-vessel coronary artery stenosis Plan: re-eval candidate for surgery by Dr Sen (2) Acute systolic CHF (congestive heart failure) Plan: EF 20% ASA, BB GUILLAUME (3) New onset of congestive heart failure (4) Elevated troponin (5) Ventricular tachycardia (6) Diabetes (7) Shortness of breath Mayra Sen MD Dec 13, 2016 11:23
--- NOTE | 2016-12-13 18:37 | PD.CARD.PN ---
Subjective Subjective Remarks Doing well Off oxygen Still SOB with walking No chest pain Objective Medications Current Medications Medications (Trade) Dose Ordered Sig/Dorian Route Start Time Stop Time Status Last Admin (NS Flush) 2 ml UNSCH PRN IV FLUSH 12/08/16 21:15 (NS Flush) 2 ml BID IV FLUSH 12/09/16 09:00 12/13/16 09:08 (Tylenol) 650 mg Q4H PRN PO 12/08/16 21:15 (Zofran Inj) 4 mg Q6H PRN IVP 12/08/16 21:15 (Narcan Inj) 0.4 mg UNSCH PRN IV PUSH 12/08/16 21:15 (D50w (Vial) Inj) 50 ml UNSCH PRN IV PUSH 12/08/16 21:15 (Glucagon Inj) 1 mg UNSCH PRN OTHER 12/08/16 21:15 (NovoLOG SUPPLEMENTAL SCALE) 1 ACHS SLIDING SCALE SQ 12/09/16 08:00 12/13/16 13:04 (Vasotec) 5 mg DAILY PO 12/09/16 10:00 12/13/16 09:07 (Coreg) 3.125 mg Q12HR PO 12/09/16 10:00 12/13/16 09:07 (Lipitor) 20 mg DAILY PO 12/09/16 10:00 12/13/16 09:07 (Lasix) 20 mg DAILY PO 12/10/16 09:00 12/13/16 09:07 (Levemir Inj) 10 units HS SQ 12/11/16 21:00 12/12/16 21:53 (Aspirin Chew) 81 mg DAILY CHEW 12/12/16 09:00 12/13/16 09:06 (KCl) 20 meq DAILY PO 12/13/16 09:00 12/13/16 09:07 (Duoneb Neb) 1 ampule Q2HR NEB PRN NEB 12/13/16 10:15 Vital Signs / I&O Vital Signs Date Time Temp Pulse Resp B/P (MAP) Pulse Ox O2 Delivery O2 Flow Rate FiO2 12/13/16 16:04 98.1 85 16 122/85 (97) 96 12/13/16 13:09 91 12/13/16 12:04 97.6 88 16 128/82 (97) 92 10/19/17 09:30 Room Air 12/13/16 08:00 97.7 90 16 130/83 (99) 93 12/13/16 04:00 98.3 85 16 129/84 (99) 93 12/13/16 00:00 98.7 80 16 121/72 (88) 94 12/12/16 20:04 98.4 95 17 147/85 (105) 95 12/12/16 19:15 91 12/12/16 19:15 97 Room Air I/O 12/12/16 12/12/16 12/12/16 12/13/16 12/13/16 12/13/16 07:00 15:00 23:00 07:00 15:00 23:00 Intake Total 570 ml 380 ml 720 ml Balance 570 ml 380 ml 720 ml Intake Oral 570 ml 380 ml 720 ml # Voids 5 6 3 # Bowel Movements 1 2 Physical Exam GENERAL: NAD, AAOx3 SKIN: Warm and dry. HEAD: Atraumatic. Normocephalic. EYES: Pupils equal and round. No scleral icterus. No injection or drainage. ENT: No nasal bleeding or discharge. Mucous membranes pink and moist. NECK: Trachea midline. No JVD. CARDIOVASCULAR: Regular rate and rhythm. RESPIRATORY: No accessory muscle use. Decreased breath sounds bilaterally GASTROINTESTINAL: Abdomen soft, non-tender, nondistended. Hepatic and splenic margins not palpable. MUSCULOSKELETAL: Extremities without clubbing, cyanosis, or edema. No obvious deformities. NEUROLOGICAL: Awake and alert. No obvious cranial nerve deficits. Motor grossly within normal limits. Five out of 5 muscle strength in the arms and legs. Normal speech. PSYCHIATRIC: Appropriate mood and affect; insight and judgment normal. Laboratory Laboratory Tests Test 12/13/16 00:45 Urine Color YELLOW Urine Turbidity CLEAR Urine pH 7.0 Urine Specific [place] 1.019 Urine Protein 300 mg/dL Urine Glucose (UA) 150 mg/dL Urine Ketones NEG mg/dL Urine Occult Blood SMALL Urine Nitrite NEG Urine Bilirubin NEG Urine Urobilinogen LESS THAN 2.0 MG/DL Urine Leukocyte Esterase NEG Urine RBC 4 /hpf Urine WBC 2 /hpf Urine Squamous Epithelial Cells 1 /hpf Microscopic Urinalysis Comment CULT NOT INDICATED Assessment and Plan Problem List: (1) Multi-vessel coronary artery stenosis ICD Codes: I25.10 - Atherosclerotic heart disease of [place] coronary artery without angina pectoris (2) Acute systolic CHF (congestive heart failure) ICD Codes: I50.21 - Acute systolic (congestive) heart failure (3) New onset of congestive heart failure ICD Codes: I50.9 - Heart failure, unspecified (4) Elevated troponin ICD Codes: R74.8 - Abnormal levels of other serum enzymes (5) Ventricular tachycardia ICD Codes: I47.2 - Ventricular tachycardia (6) Diabetes ICD Codes: E11.9 - Type 2 diabetes mellitus without complications (7) Shortness of breath ICD Codes: R06.02 - Shortness of breath Assessment and Plan 1) Multivessel CAD Con't ASA/Lipitor/Coreg 2) Acute systolic heart failure/new ischemic cardiomyopathy Diuresed well Appears mostly compensated with a wedge of 13 on RHC Con't Coreg GUILLAUME-I held for possible CABG 3) Replete electrolytes 4) Repeat echo EF 15-20% CT surgery plans transfer to [facility] Rivas DO Dec 13, 2016 18:37
[2016-12-13] MEDS: INSULIN DETEMIR 100 UNITS/ML VIAL SQ SCH (21:00)
[2016-12-14] VITALS: BP_SYST 111; BP_SYST 121; BP_DIAS 58; BP_DIAS 70; PULSE 76; PULSE 79; RESP 20; TEMP 97.6; TEMP 97.9; O2SAT 98
[2016-12-14 04:00] VITALS: BP 115/69; PULSE 80; RESP 20; TEMP 97.8; O2SAT 97
[2016-12-14] MEDS: INSULIN ASPART SUPPLEMENTAL SCALE SQ SCH ×2 (08:00→12:00)
[2016-12-14 08:05] VITALS: BP 131/95; PULSE 90; RESP 18; TEMP 97.7; O2SAT 98
[2016-12-14] MEDS: POTASSIUM CHLORIDE 20 MEQ CONTROLLED RELEASE TAB PO SCH (09:23)
[2016-12-14] MEDS: ATORVASTATIN 20 MG TAB PO SCH (09:23)
[2016-12-14] MEDS: CARVEDILOL 3.125 MG TAB PO SCH (09:23)
[2016-12-14] MEDS: ASPIRIN 81 MG CHEW TAB CHEW SCH (09:23)
[2016-12-14] MEDS: ENALAPRIL MALEATE 5 MG TAB PO SCH (09:23)
[2016-12-14] MEDS: SODIUM CHLORIDE 0.9% FLUSH 10 ML FLUSH IV FLUSH SCH (09:23)
[2016-12-14] MEDS: FUROSEMIDE 20 MG TAB PO SCH (09:23)
[2016-12-14 10:06] VITALS: PULSE 79
--- NOTE | 2016-12-14 10:38 | HHI.PR ---
Subjective Remarks Follow up NSTEMI/CONGESTIVE HEART FAILURE 12/10/16-patient seen and examined; complains of some chest discomfort and shortness of breath 12/11/16-patient seen and examined, currently nothing by mouth and heading for left heart catheterization. Denies any chest pain. EF 20% 12/12/16-patient seen and examined, she had heart catheterization yesterday with finding of CAD with multivessel disease. Denies currently any chest pain however complains of shortness of breath. 12/13/16-patient seen and examined, denies any chest pain or shortness of breath. Patient was all in tears this morning as she is being transferred to [facility] 12/14/16-patient seen and examined, denies any chest pain or shortness of breath. Apparently patient's would be evaluated by [facility] only after her Medicaid process has gone through. Objective Vitals Vital Signs Date Time Temp Pulse Resp B/P (MAP) Pulse Ox O2 Delivery O2 Flow Rate FiO2 12/14/16 10:06 79 12/14/16 09:19 Room Air 12/14/16 08:05 97.7 90 18 131/95 (107) 98 12/14/16 04:00 97.8 80 20 115/69 (84) 97 12/14/16 00:00 97.9 79 20 121/70 (87) 98 12/13/16 20:00 98.1 85 20 118/67 (84) 94 12/13/16 20:00 87 12/13/16 19:15 97 Room Air 12/13/16 16:04 98.1 85 16 122/85 (97) 96 12/13/16 13:09 91 12/13/16 12:04 97.6 88 16 128/82 (97) 92 I/O 12/13/16 12/13/16 12/13/16 12/14/16 12/14/16 12/14/16 07:00 15:00 23:00 07:00 15:00 23:00 Intake Total 720 ml 380 ml 600 ml Balance 720 ml 380 ml 600 ml Intake Oral 720 ml 380 ml 600 ml # Voids 3 5 2 # Bowel Movements 1 Result Diagram: 12/12/16 0532 12/12/16 0532 Imaging Last Impressions Lower Extremity Ultrasound 12/11/16 0000 Signed Impressions: Service Date/Time: Sunday, December 11, 2016 19:15 - CONCLUSION: Measurement as above. Doc Hugo MD Carotid Artery Ultrasound 12/11/16 0000 Signed Impressions: Service Date/Time: Sunday, December 11, 2016 18:43 - CONCLUSION: No evidence for hemodynamically significant stenosis. Doc Hugo MD Objective Remarks GENERAL: NAD SKIN: Warm and dry. HEAD: Normocephalic. EYES: No scleral icterus. No injection or drainage. NECK: Supple, trachea midline. No JVD or lymphadenopathy. CARDIOVASCULAR: Regular rate and rhythm without murmurs, gallops, or rubs. RESPIRATORY: Breath sounds equal bilaterally. No accessory muscle use. GASTROINTESTINAL: Abdomen soft, non-tender, nondistended. MUSCULOSKELETAL: No cyanosis, or edema. BACK: Nontender without obvious deformity. No CVA tenderness. Procedures none A/P Problem List: (1) Acute systolic CHF (congestive heart failure) ICD Code: I50.21 - Acute systolic (congestive) heart failure (2) Ventricular tachycardia ICD Code: I47.2 - Ventricular tachycardia (3) New onset of congestive heart failure ICD Code: I50.9 - Heart failure, unspecified (4) Elevated troponin ICD Code: R74.8 - Abnormal levels of other serum enzymes (5) Shortness of breath ICD Code: R06.02 - Shortness of breath (6) Diabetes ICD Code: E11.9 - Type 2 diabetes mellitus without complications Assessment and Plan 51 YRS old female CAD with Multivessel disease Awaiting evaluation from cardiothoracic surgery for possible CABG Continue with Lipitor, aspirin. Will resume GUILLAUME inhibitor Carotid ultrasound and Doppler lower extremities noted Patient will be evaluated by [facility] in and outpatient setting Non-ST elevated myocardial infarction s/p left heart catheterization 12/11/16 with finding of CAD with multivessel disease currently on aspirin,Coreg 3.125 mg twice daily, Lipitor 20 mg daily Appreciate input from Athletics Director, 2-D with EF of 20%, Repeat 2-D echo with EF 15-20% New onset systolic congestive heart failure Lasix 20 mg daily 2-D echocardiogram with EF 20%, however repeat 2-D echo with EF 15-20% Continue beta vangie, and resume GUILLAUME inhibitor as patient would not have CABG now Diabetes II-uncontrolled Accu-Cheks with sliding scale insulin, and Levemir 10 units at bedtime Hemoglobin A1c 10.6 Hyperlipidemia Currently on Lipitor 20 mg at bedtime DVT prevention Subcutaneous Lovenox Magnus Bashir MD Dec 14, 2016 10:38
[2016-12-14] MEDS ORDERED: NOVOLOGSS SQ (10:43)
[2016-12-14] MEDS ORDERED: FURO20TA PO (10:43)
[2016-12-14] MEDS ORDERED: CARV3.125 PO (10:43)
[2016-12-14] MEDS ORDERED: POTA20TA5 PO (10:43)
[2016-12-14] MEDS ORDERED: ENAL5TAB PO (10:43)
[2016-12-14] MEDS ORDERED: LEVEMIR SQ (10:43)
[2016-12-14] MEDS ORDERED: ATOR20TA15 PO (10:43)
[2016-12-14] MEDS ORDERED: METF1000 PO (10:43)
[2016-12-14] MEDS ORDERED: ASPI81CH25 CHEW (10:43)
[2016-12-14] MEDS ORDERED: BLOOD GLUCOSE T1 TES (10:48)
[2016-12-14] MEDS ORDERED: INSU-118 (10:48)
[2016-12-14] MEDS ORDERED: BLOOD GLUCOSE M1 KIT (10:48)
[2016-12-14] MEDS ORDERED: INSU-99 (10:48)
--- NOTE | 2016-12-14 10:50 | HHI.DS ---
Discharge Summary Admission Date Dec 08, 2016 at 20:51 Discharge Date: Dec 14, 2016 Admitting Diagnosis (1) Acute systolic CHF (congestive heart failure) ICD Code: I50.21 - Acute systolic (congestive) heart failure (2) Ventricular tachycardia ICD Code: I47.2 - Ventricular tachycardia (3) New onset of congestive heart failure ICD Code: I50.9 - Heart failure, unspecified (4) Elevated troponin ICD Code: R74.8 - Abnormal levels of other serum enzymes (5) Shortness of breath ICD Code: R06.02 - Shortness of breath (6) Diabetes ICD Code: E11.9 - Type 2 diabetes mellitus without complications Procedures none Brief History - From Admission 51-year-old female with known history of diabetes who presented went to the emergency department in [place] because of shortness of breath, lower extremity edema, feet numbness. Patient states that her symptoms started 2 weeks ago and it progressively gotten worse. She has had increased shortness of breath, dyspnea on exertion, lower extremity edema. Denied any actual chest pain. Denies any fever, chills, nausea, vomiting, lightheadedness, dizziness. Patient had workup done in the [place] emergency department and was found to have significant medical issues with elevated troponin, elevated BNP. New- onset congestive heart failure, non-ST elevated myocardial infarction. Patient was transferred to [place] for continued management. This morning patient has significant episodes of ventricular tachycardia. This was monitored on telemetry. Patient was asleep during the time. Patient still did not experience any chest pain. She does have shortness of breath, she was diaphoretic. CBC/BMP: 12/12/16 0532 12/12/16 0532 Significant Findings Laboratory Tests Test 12/12/16 05:32 12/13/16 00:45 Blood Urea Nitrogen 23 MG/DL (7-18) Estimat Glomerular Filtration Rate 63 ML/MIN (>89) Urine Protein 300 mg/dL (NEG-TRACE) Urine Glucose (UA) 150 mg/dL (NEG) Urine Occult Blood SMALL (NEG) Urine RBC 4 /hpf (0-3) Imaging Last Impressions Lower Extremity Ultrasound 12/11/16 0000 Signed Impressions: Service Date/Time: Sunday, December 11, 2016 19:15 - CONCLUSION: Measurement as above. Doc Hugo MD Carotid Artery Ultrasound 12/11/16 0000 Signed Impressions: Service Date/Time: Sunday, December 11, 2016 18:43 - CONCLUSION: No evidence for hemodynamically significant stenosis. Doc Hugo MD PE at Discharge GENERAL: NAD SKIN: Warm and dry. HEAD: Normocephalic. EYES: No scleral icterus. No injection or drainage. NECK: Supple, trachea midline. No JVD or lymphadenopathy. CARDIOVASCULAR: Regular rate and rhythm without murmurs, gallops, or rubs. RESPIRATORY: Breath sounds equal bilaterally. No accessory muscle use. GASTROINTESTINAL: Abdomen soft, non-tender, nondistended. MUSCULOSKELETAL: No cyanosis, or edema. BACK: Nontender without obvious deformity. No CVA tenderness. Hospital Course CAD with Multivessel disease Awaiting evaluation from cardiothoracic surgery for possible CABG Continue with Lipitor, aspirin. Will resume GUILLAUME inhibitor Carotid ultrasound and Doppler lower extremities noted Patient will be evaluated by [facility] in and outpatient setting Non-ST elevated myocardial infarction s/p left heart catheterization 12/11/16 with finding of CAD with multivessel disease currently on aspirin,Coreg 3.125 mg twice daily, Lipitor 20 mg daily Appreciate input from Communications Program Manager, 2-D with EF of 20%, Repeat 2-D echo with EF 15-20% New onset systolic congestive heart failure Lasix 20 mg daily 2-D echocardiogram with EF 20%, however repeat 2-D echo with EF 15-20% Continue beta vangie, and resume GUILLAUME inhibitor as patient would not have CABG now Diabetes II-uncontrolled Accu-Cheks with sliding scale insulin, and Levemir 10 units at bedtime Hemoglobin A1c 10.6 Hyperlipidemia Currently on Lipitor 20 mg at bedtime Pt Condition on Discharge: Stable Discharge Disposition: Discharge Home Discharge Time: > 30 minutes Discharge Instructions DIET: Follow Instructions for: Diabetic Diet Activities you can perform: Regular-No Restrictions Follow up Referrals: Cardiology PCP Follow-up - 1 Week Vascular Surgery New Medications: Blood Glucose Monitoring W/Device (Blood Glucose Monitoring W/Device) 1 Kit Kit KIT .ROUTE DIRECTED for Blood Sugar Management, #1 0 Refills Blood Glucose Test Strips (Blood Glucose Test Strips) Strips Strip EA .ROUTE DIRECTED for Blood Sugar Management, #1 11 Refills CareFine Pen [place] 32G X 5 mm (CareFine Pen [place] 32G X 5 mm) 32 Gauge X 3/ 16" Mis BOX .ROUTE DIRECTED for Blood Sugar Management, #1 11 Refills CareOne Insulin Syringes/ 31G X 5/16" 0.5 ml (CareOne Insulin Syringes/ 31G X 5/ 16" 0.5 ml) 31 Gauge X 5/16" Mis BOX .ROUTE DIRECTED for Blood Sugar Management, #1 11 Refills Aspirin (Aspirin Low Strength) 81 Mg Chew 81 MG CHEW DAILY for Prevent Blood Clot, #30 EA 11 Refills Atorvastatin (Atorvastatin) 20 Mg Tab 20 MG PO DAILY for Cholesterol Management, #30 TAB 11 Refills Carvedilol (Coreg) 3.125 Mg Tab 3.125 MG PO Q12HR for Blood Pressure Management, #60 TAB 11 Refills Enalapril (Enalapril) 5 Mg Tab 5 MG PO DAILY for Blood Pressure Management, #30 TAB 11 Refills Furosemide (Furosemide) 20 Mg Tab 20 MG PO DAILY for Prevent Heart Failure, #30 TAB 11 Refills Insulin Aspart Inj (Novolog Inj) 100 Unit/Ml Inj 1 UNIT SQ ACHS SLIDING SCALE for Blood Sugar Management, #100 INJECTION 11 Refills Insulin Detemir Inj (Levemir Inj) 1,000 unit/ 10 ML Vial 10 UNITS SQ HS for Blood Sugar Management, #100 INJECTION 11 Refills Do not mix with any other Insulin. Potassium Chloride Microencaps (Potassium Chloride Microencaps) 20 Meq Tab 20 MEQ PO DAILY for Electrolyte Replacement, #30 CAP 11 Refills Continued Medications: Metformin (Metformin) 1,000 Mg Tab 1000 MG PO BIDPC for Blood Sugar Management, #60 TAB 11 Refills (This prescription has been renewed) Magnus Bashir MD Dec 14, 2016 10:50
[2016-12-14 12:05] VITALS: BP 126/78; PULSE 81; RESP 17; TEMP 97.6; O2SAT 100
--- NOTE | 2016-12-14 13:23 | PD.CARD.PN ---
Subjective Subjective Remarks Doing well Off oxygen Still SOB with walking No chest pain Objective Medications Current Medications Medications (Trade) Dose Ordered Sig/Dorian Route Start Time Stop Time Status Last Admin (NS Flush) 2 ml UNSCH PRN IV FLUSH 12/08/16 21:15 (NS Flush) 2 ml BID IV FLUSH 12/09/16 09:00 12/14/16 09:23 (Tylenol) 650 mg Q4H PRN PO 12/08/16 21:15 (Zofran Inj) 4 mg Q6H PRN IVP 12/08/16 21:15 (Narcan Inj) 0.4 mg UNSCH PRN IV PUSH 12/08/16 21:15 (D50w (Vial) Inj) 50 ml UNSCH PRN IV PUSH 12/08/16 21:15 (Glucagon Inj) 1 mg UNSCH PRN OTHER 12/08/16 21:15 (NovoLOG SUPPLEMENTAL SCALE) 1 ACHS SLIDING SCALE SQ 12/09/16 08:00 12/13/16 21:00 (Vasotec) 5 mg DAILY PO 12/09/16 10:00 12/14/16 09:23 (Coreg) 3.125 mg Q12HR PO 12/09/16 10:00 12/14/16 09:23 (Lipitor) 20 mg DAILY PO 12/09/16 10:00 12/14/16 09:23 (Lasix) 20 mg DAILY PO 12/10/16 09:00 12/14/16 09:23 (Levemir Inj) 10 units HS SQ 12/11/16 21:00 12/13/16 21:00 (Aspirin Chew) 81 mg DAILY CHEW 12/12/16 09:00 12/14/16 09:23 (KCl) 20 meq DAILY PO 12/13/16 09:00 12/14/16 09:23 (Duoneb Neb) 1 ampule Q2HR NEB PRN NEB 12/13/16 10:15 Vital Signs / I&O Vital Signs Date Time Temp Pulse Resp B/P (MAP) Pulse Ox O2 Delivery O2 Flow Rate FiO2 12/14/16 12:05 97.6 81 17 126/78 (94) 100 12/14/16 10:06 79 12/14/16 09:19 Room Air 12/14/16 08:05 97.7 90 18 131/95 (107) 98 12/14/16 04:00 97.8 80 20 115/69 (84) 97 12/14/16 00:00 97.9 79 20 121/70 (87) 98 12/13/16 20:00 98.1 85 20 118/67 (84) 94 12/13/16 20:00 87 12/13/16 19:15 97 Room Air 12/13/16 16:04 98.1 85 16 122/85 (97) 96 I/O 12/13/16 12/13/16 12/13/16 12/14/16 12/14/16 12/14/16 07:00 15:00 23:00 07:00 15:00 23:00 Intake Total 720 ml 380 ml 600 ml Balance 720 ml 380 ml 600 ml Intake Oral 720 ml 380 ml 600 ml # Voids 3 5 2 # Bowel Movements 1 Physical Exam GENERAL: NAD, AAOx3 SKIN: Warm and dry. HEAD: Atraumatic. Normocephalic. EYES: Pupils equal and round. No scleral icterus. No injection or drainage. ENT: No nasal bleeding or discharge. Mucous membranes pink and moist. NECK: Trachea midline. No JVD. CARDIOVASCULAR: Regular rate and rhythm. RESPIRATORY: No accessory muscle use. Decreased breath sounds bilaterally GASTROINTESTINAL: Abdomen soft, non-tender, nondistended. Hepatic and splenic margins not palpable. MUSCULOSKELETAL: Extremities without clubbing, cyanosis, or edema. No obvious deformities. NEUROLOGICAL: Awake and alert. No obvious cranial nerve deficits. Motor grossly within normal limits. Five out of 5 muscle strength in the arms and legs. Normal speech. PSYCHIATRIC: Appropriate mood and affect; insight and judgment normal. Assessment and Plan Problem List: (1) Multi-vessel coronary artery stenosis ICD Codes: I25.10 - Atherosclerotic heart disease of [place] coronary artery without angina pectoris (2) Acute systolic CHF (congestive heart failure) ICD Codes: I50.21 - Acute systolic (congestive) heart failure (3) New onset of congestive heart failure ICD Codes: I50.9 - Heart failure, unspecified (4) Elevated troponin ICD Codes: R74.8 - Abnormal levels of other serum enzymes (5) Ventricular tachycardia ICD Codes: I47.2 - Ventricular tachycardia (6) Diabetes ICD Codes: E11.9 - Type 2 diabetes mellitus without complications (7) Shortness of breath ICD Codes: R06.02 - Shortness of breath Assessment and Plan 1) Multivessel CAD Con't ASA/Lipitor/Coreg 2) Acute systolic heart failure/new ischemic cardiomyopathy Diuresed well Appears mostly compensated with a wedge of 13 on RHC Con't Coreg/GUILLAUME-I 3) Replete electrolytes 4) Repeat echo EF 15-20% 5) Claudio won't see until Medicare kicks in... plan discharge with follow up Lasix if up 2lbs in 24 hours or 3lbs in 48 hours will take extra Lasix Problem Qualifiers (1) Diabetes: Qualified Codes: E11.9 - Type 2 diabetes mellitus without complications Leonides Gusman DO Dec 14, 2016 13:22
--- NOTE | 2016-12-17 09:54 | RSPPFT ---
DATE OF PROCEDURE: 12/13/16 COMMENTS: Spirometry with FVC of 2.0, FEV1 of 1.3, FEV1/FVC ratio at 66%. A non-significant response to acutely inhaled bronchodilator noted. IMPRESSION: 1. Moderately severe airways obstruction. 2. Non-significant response to acutely inhaled bronchodilator.
== END 2016-12-14 17:24 | disposition home or self-care (01) | DRG 281 ==
LOC: PHEDDLT 20:48 → PH3A 20:51 → HIMN 12-09 15:15 → N04A 12-11 17:25
PROVIDERS: ADMIT Hospitalist; ATTEND Hospitalist
PROC: B2111ZZ Fluoroscopy of Multiple Coronary Arteries using Low Osmolar Contrast (ICD-10-PCS; 2016-12-11)
PROC: 4A023N8 Measurement of Cardiac Sampling and Pressure, Bilateral, Percutaneous Approach (ICD-10-PCS; principal; 2016-12-11 08:30)
DX: I11.0 Hypertensive heart disease with heart failure (principal); I21.4 Non-ST elevation (NSTEMI) myocardial infarction; I47.2 Ventricular tachycardia; F17.210 Nicotine dependence, cigarettes, uncomplicated; I50.21 Acute systolic (congestive) heart failure; E11.9 Type 2 diabetes mellitus without complications; I25.5 Ischemic cardiomyopathy; E78.4 Other hyperlipidemia; Z79.84 Long term (current) use of oral hypoglycemic drugs; Z59.0 Homelessness
CPT/HCPCS: 71010; 80048; 80053; 80061; 80076; 81001; 82550; 82948; 83036; 83735; 83880; 84439; 84443; 84481; 84484; 85025; 85610; 85730; 87641; 93005; 93306; 93308; 93460; 93880; 93970; 93998; 94060; 96374; C1769; C1893; J1644; J1650; J1815; J1940; J2250; J3010; J3475; Q9967